=== PATIENT | male | born 1950 | race Caucasian/White ===

== ENCOUNTER 2016-11-07 10:30 | Inpatient (IN) | payer BC ==
[2016-11-07] MEDS ORDERED: MORPHINE SULFATE 10 MG/ML INJ IV ONE (10:42)
--- NOTE | 2016-11-07 10:51 | ER Document Report ---
ED General - General Chief Complaint: Headache Stated Complaint: HEADACHE/WEAKNESS Time Seen by Provider: 11/07/16 10:42 Mode of Arrival: Ambulatory Information source: Patient Notes: 65-year-old male who approximately 3 weeks ago had a seizure episode fell and struck his head and has been having intermittent headaches since presents with complaints of sweating and headaches. Patient denies any fevers or chills denies any nausea or vomiting, patient was found to have a heart rate at 156 on arrival, he denies a history of such denies any shortness of breath admits to bilateral epigastric abdominal pain TRAVEL OUTSIDE OF THE [place] IN LAST 30 DAYS: No - HPI Onset: Just prior to arrival Onset/Duration: Sudden Quality of pain: Achy Severity: Mild Pain Level: 1 Associated symptoms: Headache, Other - Epigastric abdominal pain. denies: None , Allergy/hay fever, Body/muscle aches, Chest pain, Chills, Nonproductive cough , Productive cough, Diarrhea, Drooling, Earache, Fever, Hoarseness, Hurts to breath, Leg swelling, Nausea, Vomiting, Rhinnorhea, Sinus pain/drainage, Shortness of breath, Slow to respond, Sore throat, Sweating, Weakness Exacerbated by: Denies Relieved by: Denies Similar symptoms previously: Yes Recently seen / treated by doctor: No - Related Data Allergies/Adverse Reactions: No Known Allergies Allergy (Unverified 10/31/10 11:39) Home Medications: Current Home Medications Aspirin [Adult Low Dose Aspirin EC] 81 mg PO DAILY 11/07/16 [History] Cyclosporine 0.05% Oph Emulsio [Restasis 0.05% Oph Emulsion Pf 0.4 ml] 1 drop OU BID 11/07/16 [History] Dapagliflozin Propanediol [Farxiga] 5 mg PO QAM 11/07/16 [History] Insulin Glargine,Hum.rec.anlog [[place] Solostar] 60 units SQ DAILY 11/07/16 [ History] Levetiracetam [Keppra 500 mg Tablet] 500 mg PO BID 11/07/16 [History] Liraglutide [Victoza 2-Isra] 1.8 mg SQ DAILY 11/07/16 [History] Pregabalin [Lyrica] 300 mg PO Q12 11/07/16 [History] Tramadol HCl [Tramadol HCl ER] 300 mg PO BIDP PRN 11/07/16 [History] Past Medical History - Social History Smoking Status: Never Smoker Cigarette use (# per day): No Chew tobacco use (# tins/day): No Smoking Education Provided: No Family History: Reviewed & Not Pertinent Patient has suicidal ideation: No Patient has homicidal ideation: No - Past Medical History Cardiac Medical History: Reports: Hx Hypertension - atenolol Denies: Hx Heart Attack Pulmonary Medical History: Denies: Hx Asthma Neurological Medical History: Denies: Hx Cerebrovascular Accident, Hx Seizures Renal/ Medical History: Denies: Hx Peritoneal Dialysis GI Medical History: Denies: Hx Hepatitis, Hx Hiatal Hernia, Hx Ulcer Musculoskeltal Medical History: Infectious Medical History: Denies: Hx Hepatitis Past Surgical History: Denies: Hx Open Heart Surgery, Hx Pacemaker Review of Systems - Review of Systems Notes: REVIEW OF SYSTEMS: CONSTITUTIONAL : Admits to sweats EENT: Denies eye, ear, throat, or mouth pain or symptoms. Denies nasal or sinus congestion or discharge. Denies throat, tongue, or mouth swelling or difficulty swallowing. CARDIOVASCULAR: Denies chest pain. Denies palpitations or racing or irregular heart beat. Denies ankle edema. RESPIRATORY: Denies cough, cold, or chest congestion. Denies shortness of breath, difficulty breathing, or wheezing. GASTROINTESTINAL: Admits to abdominal pain GENITOURINARY: Denies difficulty urinating, painful urination, burning, frequency, blood in urine, or discharge. MUSCULOSKELETAL: Denies back or neck pain or stiffness. Denies joint pain or swelling. SKIN: Denies rash, lesions or sores. HEMATOLOGIC : Denies easy bruising or bleeding. LYMPHATIC: Denies swollen, enlarged glands. NEUROLOGICAL: Admits to headache PSYCHIATRIC: Denies anxiety or stress. Denies depression, suicidal ideation, or homicidal ideation. ALL OTHER SYSTEMS REVIEWED AND NEGATIVE. Dictation was performed using [employer] voice recognition software PHYSICAL EXAMINATION: GENERAL: Well-appearing, well-nourished and in no acute distress. HEAD: Atraumatic, normocephalic. EYES: Pupils equal round and reactive to light, extraocular movements intact, sclera anicteric, conjunctiva are normal. ENT: Nares patent, oropharynx clear without exudates. Moist mucous membranes. NECK: Normal range of motion, supple without lymphadenopathy LUNGS: Breath sounds clear to auscultation bilaterally and equal. No wheezes rales or rhonchi. HEART: Sinus tachycardia in the 150s-160s ABDOMEN: Soft, epigastric abdominal pain left and right upper quadrant Musculoskeletal: Normal range of motion, no pitting or edema. No cyanosis. NEUROLOGICAL: Cranial nerves grossly intact. Normal speech, normal gait. Normal sensory, motor exams PSYCH: Normal mood, normal affect. SKIN: Warm, Dry, normal turgor, no rashes or lesions noted. Physical Exam - Vital signs Vitals: Temp Pulse Resp BP Pulse Ox 97.3 F 160 H 20 123/91 H 99 11/07/16 10:33 11/07/16 10:33 11/07/16 10:33 11/07/16 10:33 11/07/16 10:33 Course - Re-evaluation Re-evalutation: 11/07/16 10:53 Physical examination is concerning for a septic presentation with heart rate in the 160s with sweats, patient overall actually looks quite well labwork IV fluids pain control have been ordered 11/07/16 14:33 Patient is noted to have elevated lactic acid, heart rate did improve from 160s- 80s, he did become hypotensive, I start antibiotics prophylactically as I am unsure of exactly what is going on, patient's only pain is sharp pains intermittently behind his eye with no signs of cavernous sinus thrombosis or any life-threatening issues at this time patient will be admitted for further evaluation and care - Vital Signs Vital signs: Temp Pulse Resp BP Pulse Ox 97.3 F 160 H 19 122/82 97 11/07/16 10:33 11/07/16 10:33 11/07/16 13:14 11/07/16 13:14 11/07/16 13:14 - Laboratory Result Diagrams: 11/07/16 11:10 11/07/16 11:10 Laboratory results interpreted by me: 11/07/16 11/07/16 11/07/16 11:10 11:10 11:10 RDW 14.3 H Glucose 299 H Lactic Acid 4.0 H Discharge - Discharge Clinical Impression: Sinus tachycardia, Elevated lactic acid level Headache Qualifiers: Headache type: unspecified Headache chronicity pattern: acute headache Intractability: not intractable Qualified Code(s): R51 - Headache Condition: Stable Disposition: ADMITTED OBSERVATION Admitting Provider: Hospitalist Unit Admitted: Telemetry
[2016-11-07] MEDS: NORMAL SALINE 1000 ML 1,000 ML IV PRN ×2 (11:27→13:09)
[2016-11-07 11:29] LABS: ABSOLUTE BASOPHILS # (AUTO) 0.1 10^3/uL (0.0-0.2); ABSOLUTE EOSINOPHILS # (AUTO) 0.1 10^3/uL (0.0-0.6); ABSOLUTE LYMPHOCYTES (AUTO) 2.9 10^3/uL (0.5-4.7); ABSOLUTE MONOCYTES (AUTO) 0.5 10^3/uL (0.1-1.4); ABSOLUTE NEUT (AUTO) 6.1 10^3/uL (1.7-8.2); BASOPHILS % (AUTO) 0.5 % (0-2); EOSINOPHILS % (AUTO) 0.6 % (0-6); HEMATOCRIT 46.5 % (37.9-51.0); HEMOGLOBIN 15.6 g/dL (13.5-17.0); HGB HCT DIFFERENCE 0.3; LYMPHOCYTES % (AUTO) 29.7 % (13-45); MEAN CORPUSCULAR HEMOGLOBIN 29.9 pg (27.0-33.4); MEAN CORPUSCULAR HGB CONC 33.7 g/dL (32.0-36.0); MEAN CORPUSCULAR VOLUME 89 fl (80-97); MONOCYTES % (AUTO) 5.6 % (3-13); RED BLOOD COUNT 5.23 10^6/uL (4.35-5.55); RED CELL DISTRIBUTION WIDTH 14.3 % (11.5-14.0); SEGMENTED NEUTROPHILS % (AUTO) 63.6 % (42-78); WHITE BLOOD COUNT 9.7 10^3/uL (4.0-10.5)
--- NOTE | 2016-11-07 11:37 | RADIOLOGY REPORT (SQ) ---
EXAM DESCRIPTION: CHEST SINGLE VIEW COMPLETED DATE/TIME: 11/07/2016 11:30 am REASON FOR STUDY: tachycardia COMPARISON: 05/31/2009 EXAM PARAMETERS: NUMBER OF VIEWS: One view. TECHNIQUE: Single frontal radiographic view of the chest acquired. RADIATION DOSE: NA LIMITATIONS: None. FINDINGS: LUNGS AND PLEURA: No opacities, masses or pneumothorax. No pleural effusion. MEDIASTINUM AND HILAR STRUCTURES: No masses. Contour normal. HEART AND VASCULAR STRUCTURES: Heart stable in size. Normal vasculature. BONES: No acute findings. HARDWARE: None in the chest. OTHER: No other significant finding. IMPRESSION: NO ACUTE RADIOGRAPHIC FINDING IN THE CHEST. NO SIGNIFICANT CHANGE FROM PRIOR STUDY. TECHNICAL DOCUMENTATION: JOB ID: [id number]
[2016-11-07 11:49] LABS: ALANINE AMINOTRANSFERASE 32 U/L (21-72); ALBUMIN 4.2 g/dL (3.5-5.0); ALKALINE PHOSPHATASE 119 U/L (38-126); ANION GAP 12 (5-19); ASPARTATE AMINO TRANSFERASE 18 U/L (17-59); BILIRUBIN,DIRECT 0.3 mg/dL (0.0-0.4); BILIRUBIN,TOTAL 0.7 mg/dL (0.2-1.3); BLOOD UREA NITROGEN 18 mg/dL (7-20); CALCIUM 9.3 mg/dL (8.4-10.2); CARBON DIOXIDE 28 mmol/L (22-30); CHLORIDE 101 mmol/L (98-107); CREATINE KINASE 111 U/L (55-170); CREATININE RESULT 0.97 mg/dL (0.52-1.25); GLUCOSE 299 mg/dL (75-110); POTASSIUM 4.7 mmol/L (3.6-5.0); SODIUM 141.2 mmol/L (137-145); TOTAL PROTEIN 6.9 g/dL (6.3-8.2)
[2016-11-07 12:01] LABS: CREATINE KINASE MB 1.12 ng/mL (<4.55); TROPONIN I 0.023 ng/mL
--- NOTE | 2016-11-07 12:11 | RADIOLOGY REPORT (SQ) ---
EXAM DESCRIPTION: CT HEAD WITHOUT COMPLETED DATE/TIME: 11/07/2016 11:55 am REASON FOR STUDY: TACHYCARDIA COMPARISON: None. TECHNIQUE: Axial images acquired through the brain without intravenous contrast. Images reviewed with bone, brain and subdural windows. Images stored on PACS. All CT scanners at this facility use dose modulation, iterative reconstruction, and/or weight based dosing when appropriate to reduce radiation dose to as low as reasonably achievable (ALARA). [facility]: Dose Right [facility]: CareDose [facility]: Dose Right [facility]: Teradose 4D [facility]: [place] RADIATION DOSE: mGy. LIMITATIONS: None. FINDINGS: VENTRICLES: Prominent. CEREBRUM: No masses. No hemorrhage. No midline shift. Areas of low density in the white matter most likely due to chronic micro-vascular ischemic change. No evidence for acute infarction. CEREBELLUM: No masses. No hemorrhage. No alteration of density. No evidence for acute infarction. EXTRAAXIAL SPACES: Mild age-related involutional change. No fluid collections. No masses. ORBITS AND GLOBE: No intra- or extraconal masses. Normal contour of globe without masses. CALVARIUM: No fracture. PARANASAL SINUSES: No fluid or mucosal thickening. SOFT TISSUES: No mass or hematoma. OTHER: No other significant finding. IMPRESSION: MILD CHRONIC CHANGES OF ATROPHY AND MICROVASCULAR ISCHEMIA. NO ACUTE PROCESS. TECHNICAL DOCUMENTATION: JOB ID: [id number] Quality ID # [id number]: Final reports with documentation of one or more dose reduction techniques (e.g., Automated exposure control, adjustment of the mA and /or kV according to patient size, use of iterative reconstruction technique) 2010 [employer]- All Rights Reserved <Electronically signed by MERCY BRANDT MD in [place]> 11/07/16 1211 [facility]
[2016-11-07] MEDS ORDERED: CEFTRIAXONE 1 GM/D5W RTU 50 ML IV ONE (13:13)
[2016-11-07 14:31] LABS: APPEARANCE,URINE CLEAR; BILIRUBIN,URINE NEGATIVE (NEGATIVE); GLUCOSE, URINE >=500 mg/dL (NEGATIVE); KETONES,URINE NEGATIVE (NEGATIVE); LEUKOCYTE ESTERASE,URINE NEGATIVE (NEGATIVE); NITRITE,URINE NEGATIVE (NEGATIVE); PROTEIN,URINE NEGATIVE (NEGATIVE); URINE SPECIFIC GRAVITY 1.031; UROBILINOGEN,URINE NEGATIVE mg/dL (<2.0)
[2016-11-07] MEDS ORDERED: ACETAMINOPHEN 325 MG TABLET PO PRN (14:42)
[2016-11-07 14:48] LABS: URINE BARBITURATES SCREEN NEGATIVE; URINE METHADONE SCREEN NEGATIVE; URINE OPIATES LOW UNCONFIRMED POSITIVE; URINE PHENCYCLIDINE SCREEN NEGATIVE
[2016-11-07] MEDS ORDERED: LORAZEPAM INJ 2 MG/1 ML VIAL IV PRN (14:52)
[2016-11-07] MEDS ORDERED: DEXTROSE 50%-WATER 25 GM/50 ML DISP.SYRIN IV PRN ×2 (15:20)
[2016-11-07] MEDS ORDERED: DEXTROSE 40% GEL 15 GM TUBE PO PRN ×2 (15:20)
[2016-11-07] MEDS ORDERED: INSULIN REG, HUMAN 100 UNIT/ML 3 ML VIAL (PYX) SUBCUT PRN (15:20)
[2016-11-07] MEDS ORDERED: GLUCAGON,HUMAN RECOMB 1 MG INJ IM PRN (15:20)
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
[2016-11-07] MEDS ORDERED: BUTALB/ACETAMINOPHEN/CAFFEINE 1 TAB EACH PO PRN ×2 (15:22→15:25)
[2016-11-07] MEDS ORDERED: IBUPROFEN 600 MG TABLET PO PRN (17:23)
[2016-11-07] MEDS ORDERED: BUTALB/ACETAMINOPHEN/CAFFEINE 1 TAB EACH ONE (18:19)
[2016-11-07] MEDS: LEVETIRACETAM 500 MG TABLET PO SCH (18:30)
[2016-11-07] MEDS: CYCLOSPORINE 0.05% OPH EMULSIO 0.4 ML DROPERETTE OU SCH (18:31)
[2016-11-07] MEDS: PREGABALIN 100 MG CAPSULE PO SCH (22:29)
[2016-11-08 06:07] LABS: HEMATOCRIT 39.6 % (37.9-51.0); HGB HCT DIFFERENCE 0.9; MEAN CORPUSCULAR HGB CONC 34.2 g/dL (32.0-36.0); MEAN CORPUSCULAR VOLUME 88 fl (80-97); RED BLOOD COUNT 4.52 10^6/uL (4.35-5.55); RED CELL DISTRIBUTION WIDTH 14.2 % (11.5-14.0); WHITE BLOOD COUNT 6.1 10^3/uL (4.0-10.5)
[2016-11-08 06:15] LABS: HEMOGLOBIN 13.5 g/dL (13.5-17.0)
[2016-11-08 06:20] LABS: ANION GAP 9 (5-19); BLOOD UREA NITROGEN 15 mg/dL (7-20); CALCIUM 8.5 mg/dL (8.4-10.2); CARBON DIOXIDE 24 mmol/L (22-30); CHLORIDE 108 mmol/L (98-107); CREATININE RESULT 0.82 mg/dL (0.52-1.25); GLUCOSE 177 mg/dL (75-110); MAGNESIUM 1.8 mg/dL (1.6-2.3); SODIUM 141.4 mmol/L (137-145)
[2016-11-08] MEDS ORDERED: (PENDING PHARMACY ID) (Dapagliflozin Propanediol [Farxiga] 5 MG) PO SCH (08:00)
[2016-11-08] MEDS ORDERED: INSULIN GLARGINE,HUM.REC.ANLOG 300 UNIT/3 ML INSULN.PEN SUBCUT SCH (10:00)
[2016-11-08] MEDS ORDERED: (PENDING PHARMACY ID) (Liraglutide [Victoza 2-Pak] 1.8 MG) SQ SCH (10:00)
[2016-11-08] MEDS ORDERED: ASPIRIN 81 MG TABLET, ENT COATED PO SCH (10:00)
[2016-11-08] MEDS ORDERED: INSULIN GLARGINE,HUM.REC.ANLOG 1,000 UNIT/10 ML UNIT SUBCUT SCH (10:00)
[2016-11-08] MEDS: PREGABALIN 100 MG CAPSULE PO SCH ×2 (10:46→21:25)
[2016-11-08] MEDS: LEVETIRACETAM 500 MG TABLET PO SCH (10:46)
[2016-11-08] MEDS: HYDROCODONE/ACETAMINOPHEN 5-325 MG TABLET PO PRN ×2 (10:58→21:25)
[2016-11-08] MEDS ORDERED: LEVETIRACETAM 500 MG TABLET PO ONE (11:15)
[2016-11-08] MEDS: CYCLOSPORINE 0.05% OPH EMULSIO 0.4 ML DROPERETTE OU SCH ×2 (11:16→17:41)
--- NOTE | 2016-11-08 13:28 | PDOC CONSULTATION ---
Consultation Consult Date: 11/08/16 Attending physician:: LOAN VERDUGO Consult reason:: Tachycardia and syncope History of Present Illness Admission Date/PCP: 11/08/16 10:43 LOIS VICENTE MD Patient complains of: Generalized weakness, syncopal spells History of Present Illness: This is a 65-year-old white male with a past medical history significant for diabetes mellitus and recent injury to his head after fall who presents to the service with complaints of spell according to the patient at the beginning of this month. He was out a few weeks ago when he slipped and fell from his boat injuring his head and cutting his leg. patient presented to [facility] and was treated care for what sounds like a concussion. Since that time the patient has been complaining of headaches as well as occasional dizziness. He is following with Dr. Valencia over 58 feet. He saw her yesterday for initial evaluation and the suspicion is that he likely had a seizure when he fell off. He is due to schedule a 24 hour EEG after his been approved by his insurance. The patient's daughter is with the room and as he fell off a boat not only has he been having headaches but he is also been having spells. Difficult for her to describe the spell but she states that he will began feeling very cold, becomes sweaty, and have chills along with intense head pain. His eyes rolls back in the back of his head during these episodes and he would seem a bit spaced out to the point that they have to shake him to snap him back in reality. According to daughter the patient never remembers this last part of the spell. He has never lost any bowel or bladder incontinence. Patient said he has abdominal pain in his upper abdomen associated with the dizzy spells. In the emergency room the patient was found to initially have a heart rate of 156. He denies any chest pain or shortness of breath. Later on in his hospital stay it was determined that he had normal labs with the exception of a blood sugar of 399 and a lactic acid of 4. CT scan of his head was done which was negative. The patient dropped his blood pressure down to 70 and his heart rate fell from the 150s-80s. The patient was in sinus tachycardia or sinus normal sinus rhythm when in the emergency room. At the bedside the patient complains of epigastric pain dizziness and headache. Past Medical History Cardiac Medical History: Reports: Hypertension - atenolol Denies: Myocardial Infarction Pulmonary Medical History: Denies: Asthma Neurological Medical History: Reports: Ischemic CVA, Seizures - Patient possibly has seizures. Endocrine Medical History: Reports: Diabetes Mellitus Type 2 GI Medical History: Reports: Other - Colon cancer Denies: Hepatitis, Hiatal Hernia Musculoskeltal Medical History: Hematology: Denies: Anemia, Sickle Cell Disease Past Surgical History Past Surgical History: Reports: Other - Transverse colectomy secondary to polyps Denies: Pacemaker Social History Information Source: Relative Smoking Status: Former Smoker Number of Years Smokin Last Time Smoked: 09/05/2016 Frequency of Alcohol Use: None Hx Recreational Drug Use: No Hx Prescription Drug Abuse: No - Advance Directive Resuscitation Status: Full Code Surrogate healthcare decision maker:: Patient's is the surrogate decision-maker Family History Family History: Reviewed & Not Pertinent, DM, Hypertension Parental Family History Reviewed: Yes Children Family History Reviewed: Yes Sibling(s) Family History Reviewed.: Yes - Negative for premature coronary artery disease or sudden cardiac in the family amongst first degree relatives. Medication/Allergy Home Medications: Aspirin [Adult Low Dose Aspirin EC] 81 mg PO DAILY 11/07/16 Cyclosporine 0.05% Oph Emulsio [Restasis 0.05% Oph Emulsion Pf 0.4 ml] 1 drop OU BID 11/07/16 Dapagliflozin Propanediol [Farxiga] 5 mg PO QAM 11/07/16 Insulin Glargine,Hum.rec.anlog [Tounasra Solostar] 60 units SQ DAILY 11/07/16 Liraglutide [Victoza 2-Isra] 1.8 mg SQ DAILY 11/07/16 Pregabalin [Lyrica] 300 mg PO Q12 11/07/16 Tramadol HCl [Tramadol HCl ER] 300 mg PO BIDP PRN 11/07/16 Levetiracetam [Keppra 500 mg Tablet] 1,000 mg PO Q12 tablet 11/08/16 Allergies/Adverse Reactions: No Known Allergies Allergy (Unverified 10/31/10 11:39) Review of Systems Review of Systems: Please see history of present illness and past medical history as wall. Constitutional: No fever or chills reported. Reports frequent headaches, increasing general debility and weakness. Head : Reports recent head injury. Chronic headaches. Eyes: No recent eye pain, diplopia, redness, discharge, acute visual changes. Ears: No recent chronic ear pain, acute hearing loss, ear discharge. Oral cavity: No recent ulcerations, bleeding, oral cavity discomfort. Neck: No recent acute neck pain reported. Hematologic: No recent easy bruising or bleeding or hematologic malignancy reported. Lymphatic: No recent lymphatic malignancy, chronic lymphadenopathy reported yet Cardiovascular system review: See history of present illness. Respiratory system review: No recent chronic cough, hemoptysis, blood clots in the lungs reported. Mild Shortness of breath on exertion Gastrointestinal system review: Negative for any recent acute or chronic abdominal pain, hematemesis, melena, recent change in bowel habits. Genitourinary system review: No recent acute or chronic hematuria, flank pain, UTI etc. reported. Skin system review: Negative for any recent abnormal bruising, no rash, no pruritus reported. Neurologic: No prior history of strokes, mini strokes, positive for seizure being suspected and currently on antiseizure medications. Psychologic: No history of major psychosis or major depression reported. Musculoskeletal: Minor aches and pains reported. No acute joint swelling reported. Endocrine: No recent polyuria, polydipsia, recent heat or cold intolerance. Physical Exam Vital Signs: Temp Pulse Resp BP Pulse Ox 97.8 F 85 22 H 146/87 H 99 11/08/16 11:55 11/08/16 11:55 11/08/16 11:55 11/08/16 11:55 11/08/16 11:55 Exam: GENERAL: well-nourished and in no acute distress. Alert and oriented x3 HEAD: Atraumatic, normocephalic. EYES: Pupils equal round and reactive to light, extraocular movements intact, sclera anicteric, conjunctiva are normal. ENT: TMs normal, nares patent, oropharynx clear without exudates. Moist mucous membranes. No oral ulcerations or bleeding gums noted NECK: supple without lymphadenopathy. Trachea is central. No cervical or axillary lymphadenopathy noted. Carotids are 2+, JVD WNL LUNGS: Respiration seems nonlabored, no significant accessory muscle action noted. Breath sounds clear to auscultation bilaterally and equal noted. No wheezes rales or rhonchi noted. No significant dullness noted on percussion. CHEST: Palpation of the chest wall shows no significant chest wall tenderness. No other significant abnormalities noted. 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 ABDOMEN: Soft, no significant tenderness appreciated, normoactive bowel sounds. No guarding, no rebound. No rigidity noted . No masses appreciated. EXTREMITIES: Pedal pulses are 1-2+, no calf tenderness noted. No clubbing or cyanosis.trace to 1+ pedal edema noted NEUROLOGICAL: Focused neurological exam showed no significant neurologic deficit. Normal speech, no focal weakness appreciated. PSYCH: Normal mood, normal affect. Judgment and insight within normal limits. SKIN: No significant ecchymosis, rash, ulcerations or signs of pruritus noted. MUSCULOSKELETAL EXAM: No significant joint swelling noted. Results EKG Comments: Supraventricular tachycardia, subsequent EKG sinus rhythm. No acute ST-T wave changes noted on either EKGs Impressions: Chest X-Ray 11/07/16 10:42 IMPRESSION: NO ACUTE RADIOGRAPHIC FINDING IN THE CHEST. NO SIGNIFICANT CHANGE FROM PRIOR STUDY. Status: Image reviewed by me - Chest x-ray reviewed by me, shows normal cardiac silhouette. Lung brambila normal Assessment & Plan - Diagnosis (1) Syncope Qualifiers: Syncope type: unspecified Qualified Code(s): R55 - Syncope and collapse Is this a current diagnosis for this admission?: Yes (2) Supraventricular tachycardia Is this a current diagnosis for this admission?: Yes (3) Diabetes Qualifiers: Diabetes mellitus type: type 2 Diabetes mellitus complication status: with unspecified complications Is this a current diagnosis for this admission?: Yes (4) Spell of altered cognition Is this a current diagnosis for this admission?: Yes (5) Elevated lactic acid level Is this a current diagnosis for this admission?: Yes (6) GENERAL DEBILITY Is this a current diagnosis for this admission?: Yes - Notes Notes: Syncope: It is difficult to decide the exact etiology but could be seizure related. Cannot rule out vasovagal/neurocardiogenic syncope. Patient would benefit from prolonged monitoring as an outpatient and possible tilt table testing. Supraventricular tachycardia: Patient was noted to have this on twelve-lead EKG and rhythm strips showed sudden change to sinus rhythm which suggest that this was a supraventricular tachycardia. Will start patient on low-dose beta- adeel. Diabetes: Continue current management plans. Avoid severe hypoglycemia or hyperglycemia. Spells of altered consciousness: Possibly seizure related. General debility: Patient general strength and health has been going downhill. Exact etiology not clear but agree with physical therapy assessment. Patient will also benefit from neurological assessment. Elevated lactic acid level noted on admission. This has come down. Most likely related to seizure disorder. However will order a 2D echo to evaluate LV EF etc. - Time Time Spent: 50 to 70 Minutes - CODE STATUS was discussed, patient remains full code. Surrogate decision-maker patient spouse. Multiple medical problems were addressed. Management plans discussed with involved personnels. Medical decision making was of moderate to high complexity, patient's has multiple comorbidities. Medications reviewed and adjusted accordingly: Yes
--- NOTE | 2016-11-08 13:47 | EKG REPORT ---
SEVERITY:- ABNORMAL ECG - SINUS TACHYCARDIA PROBABLE POSTERIOR INFARCT : Confirmed by: Bess Bonner MD 08-Nov-2016 13:46:12
[2016-11-08 14:20] LABS: LIPASE 34.2 U/L (23-300)
--- NOTE | 2016-11-08 14:25 | PDOC PROGRESS REPORT ---
Subjective Progress Note for:: 11/08/16 Subjective:: The patient was seen this morning at the bedside along with his and 6 other family members. It was a long discussion about the patient spells and concerns for him having underlying neurologic condition. According to the family the patient had 3 more episodes yesterday overnight. I spoke with the day nurse who stated that she did not get any report patient had any seizures. Apparently the the episodes were reported to the night nurses but by the time he got in the room everything was over and they never actually witnessed any episodes. The family describes the patient holding the intrapleural aspect of his head complaining of pain and then his eyes rolling backwards. Of the 3 episodes 30 seconds with the longest. Family has great concerns that the patient is sick and that nothing is being found out about his underlying illness. They consider leaving AMA last night however the patient did not elect to do so despite other family members encouraging him. They have requested transfer to another facility for a neurologic evaluation. Recall that the patient has seen a neurologist in [place] when he was hospitalized for these episodes they are and he is also seen a neurologist in [facility] on Wednesday prior to presentation here. His workup that these outpatient facilities have been negative and remained negative here. We have agreed that I will call [facility] to see if they are willing to accept him in transfer, but I have already clarified that this will likely not happen since their hospital has been full for quite some time and this is a nonemergent situation. The plan of care today will be to admit the patient to inpatient status, obtain physical therapy consult (the patient's family feels as though he is weaker), increase Keppra to 1000 mg twice a day, and collated for transfer. I her back provided at 1140, shortly after I called them. I spoke with Dr. Rajan. I discussed the case with him he is a neurologist advised that he recommended an ambulatory EEG. He stated that we could call the office tomorrow and see if we can get him in this week. That number is [phone]. He suggested that if the family wanted they can contact the epilepsy center and have an outpatient study done at [facility] within the next 2 weeks. Physical Exam Vital Signs: Temp Pulse Resp BP Pulse Ox 97.8 F 85 22 H 146/87 H 99 11/08/16 11:55 11/08/16 11:55 11/08/16 11:55 11/08/16 11:55 11/08/16 11:55 GENERAL: This is a well-developed well-nourished morbidly obese white male resting in bed currently in no acute distress HEART: Regular rate and rhythm. No murmurs, rubs or gallops. LUNGS: Clear to auscultation bilaterally with equal rise and fall of the chest. ABDOMEN: Soft, nontender, nondistended with normoactive bowel sounds EXTREMETIES: No clubbing, cyanosis or edema. 2+ peripheral pulses bilaterally. NEURO: Awake, alert and oriented 3. Cranial nerves II through XII are grossly intact. Results Impressions: Chest X-Ray 11/07/16 10:42 IMPRESSION: NO ACUTE RADIOGRAPHIC FINDING IN THE CHEST. NO SIGNIFICANT CHANGE FROM PRIOR STUDY. Assessment & Plan - Diagnosis (1) Elevated lactic acid level Plan: . It came back negative on repeat. Lactic acid was likely a spurious lab. (2) Headache Qualifiers: Headache type: unspecified Headache chronicity pattern: acute headache Intractability: not intractable Qualified Code(s): R51 - Headache Plan: Tylenol will be ordered. We will also some Fioricet. Supportive care. (3) Sinus tachycardia Plan: We will consult with Dr. Reese for his opinion on the patient's tachycardia from yesterday. In my discussion with the neurologist tilt table was also suggested. I will mention this to Dr. Reese. Orthostatics had already been done twice and each time were negative. (4) Spell of altered cognition Is this a current diagnosis for this admission?: YesPlan: My concern for the spells that they may be related to underlying seizure versus transient arrhythmia. Increase Keppra to 1000 mg p.o. twice daily. Call on Wednesday to see if outpatient 24 hour EEG will be possible in [place]. Continue with plans for PT will. (5) Obesity (BMI 30.0-34.9) Plan: Weight loss through dietary changes and exercise. (6) Diabetes Qualifiers: Diabetes mellitus type: type 2 Diabetes mellitus complication status: with unspecified complications Is this a current diagnosis for this admission?: YesPlan: Records from [facility] show that his hemoglobin A1c is 9.3 sliding scale insulin. Resume home medications. - Time Time Spent with patient: Time spent: 60 minutes [id number] time 30 minutes. Rest of the time was spent in coordination of care to include 2 conversations was divided and the consulting neurologist by phone, discussion with nursing staff, discussion with cardiology service. - Inpatient Certification Medical Necessity: Need Close Monitoring Due to Risk of Patient Decompensation, Need For Continuous Telemetry Monitoring
--- NOTE | 2016-11-08 17:17 | PDOC DISCHARGE SUMMARY ---
General - Admit/Disc Date/PCP Admission Date/Primary Care Provider: 11/08/16 10:43 LOIS VICENTE MD Discharge Date: 11/08/16 - Discharge Diagnosis (1) Spell of altered cognition Is this a current diagnosis for this admission?: YesSummary: Transferred to [facility] for further evaluation. Keppra was increased to 1000 twice a day and this will be continued for now. Ultram was discontinued from the patient's medicine list. (2) Elevated lactic acid level Summary: Likely spurious lab. This is normal on repeat. (3) Headache Summary: Headache continues at a base level. Continue as needed Fioricet and as needed hydrocodone. (4) Sinus tachycardia Summary: Resolved. The patient was evaluated by cardiology who felt that this was either sinus tach or possibly SVT. Addition of a beta-adeel at low dose was recommended. (5) Obesity (BMI 30.0-34.9) Summary: Weight loss through dietary changes and exercise. (6) Diabetes Is this a current diagnosis for this admission?: YesSummary: Uncontrolled diabetes mellitus. Hemoglobin A1c was 9.3 from the outside hospital in [place]. Continue current medications follow-up as an outpatient for further management. - Additional Information Resuscitation Status: Full Code Home Medications: Aspirin [Adult Low Dose Aspirin EC] 81 mg PO DAILY 11/07/16 Cyclosporine 0.05% Oph Emulsio [Restasis 0.05% Oph Emulsion Pf 0.4 ml] 1 drop OU BID 11/07/16 Dapagliflozin Propanediol [Farxiga] 5 mg PO QAM 11/07/16 Insulin Glargine,Hum.rec.anlog [Vic Shah] 60 units SQ DAILY 11/07/16 Liraglutide [Victoza 2-Isra] 1.8 mg SQ DAILY 11/07/16 Pregabalin [Lyrica] 300 mg PO Q12 11/07/16 Tramadol HCl [Tramadol HCl ER] 300 mg PO BIDP PRN 11/07/16 Levetiracetam [Keppra 500 mg Tablet] 1,000 mg PO Q12 tablet 11/08/16 History of Present Illness History of Present Illness: This is a 65-year-old white male with a past medical history significant for diabetes mellitus and recent injury to his head after fall who presents to the service with complaints of spell according to the patient at the beginning of this month he was out chest pain today when he slipped and fell from his boat injuring his head and cutting his leg. patient presented to [facility] and was treated care for what sounds like a concussion. Since that time the patient has been complaining of headaches as well as occasional dizziness. He is following with Dr. Valencia over 58 feet. He saw her yesterday for initial evaluation and the suspicion is that he likely had a seizure when he fell off. He is due to schedule a 24 hour EEG after his been approved by his insurance. The patient's daughter is with the room and as he fell off a boat not only has he been having headaches but he is also been having spells. Difficult for her to describe the spell but she states that he will began feeling very cold, becomes sweaty, and have chills along with intense head pain. His eyes within low back in the back of his head during these episodes and he would seem a bit spaced out to the point that they have to shake him to snap him back in reality. According to daughter the patient never remembers this last part of the spell. He has never lost any bowel or bladder incontinence. Patient said he has abdominal pain in his upper abdomen associated with the dizzy spells. In the emergency room the patient was found to initially have a heart rate of 156. He denies any chest pain or shortness of breath. Later on in his hospital stay it was determined that he had normal labs with the exception of a blood sugar of 399 and a lactic acid of 4. CT scan of his head was done which was negative. The patient dropped his blood pressure down to 70 and his heart rate fell from the 150s-80s. The patient was in sinus tachycardia or sinus normal sinus rhythm when in the emergency room. At the bedside the patient complains of epigastric pain dizziness and headache. Hospital Course Hospital Course: Patient was initially admitted to the observation unit. He was maintained on telemetry and had no further episodes of tachycardia while here. Overnight he had 3 more spells that were unwitnessed by the nursing staff. According to family they lasted approximately 10-30 seconds. The symptoms were the same. The patient had a headache that became severe. He held his head, his eyes rolled back in his head and he lost consciousness for a few seconds. He was arousable with in a few moments afterwards. He did not have any bladder or bowel incontinence or any biting of the tongue. No shaking was reported from the family members that witnessed it. The patient does not recall any of these episodes. When I met with the family this morning we agreed that I would increase his Keppra, admit him to the hospital, consult physical therapy for his generalized weakness and try to get him transferred to a center with a neurologist. I initially contacted [facility]. Unfortunately, their hospital is full and they are not able to accept any patient that is not of [facility] patient unless it to the emergency. I did however get to speak with the neurologist they are Dr. Urena. In addition to the increase in Keppra he recommended a tilt table test be added on with the editor at large. He also recommended that I contacted [facility] for possibility of transferral daycare if the family was willing. If not he seemed to be confident that he could get them in this week for a 24 hour EEG at the ambulatory center in [place]. He recommended the [facility] epilepsy center for ambulatory EEG as well (if the family did not want to come to [place]). I contacted the [facility] and spoke with Dr. Milton. She is graciously accepted the patient in transfer to their EEG unit. These plans were communicated with the patient and his son who is at the bedside. A.m. cortisol and pro calcitonin pending at discharge. Physical Exam Vital Signs: Temp Pulse Resp BP Pulse Ox 97.8 F 85 22 H 146/87 H 99 11/08/16 11:55 11/08/16 11:55 11/08/16 11:55 11/08/16 11:55 11/08/16 11:55 See today's progress note for physical exam findings. Results Impressions: Chest X-Ray 11/07/16 10:42 IMPRESSION: NO ACUTE RADIOGRAPHIC FINDING IN THE CHEST. NO SIGNIFICANT CHANGE FROM PRIOR STUDY. Qualifiers PATEINT BEING DISCHARGED WITH ANY OF THE FOLLOWING DIAGNOSIS?: No Plan Time Spent: Greater than 30 Minutes
[2016-11-08] MEDS ORDERED: LEVETIRACETAM 500 MG TABLET PO SCH (22:00)
[2016-11-09 00:12] VITALS: BP 109/63
[2016-11-10 14:59] LABS: WEST NILE VIRUS IGG Negative (Negative); WEST NILE VIRUS IGM Negative (Negative)
== END 2016-11-09 00:50 | disposition short-term general hospital (02) | DRG 57 ==
LOC: ER 10:30 → EH 13:20 → UNDOADMOB 13:20 → EH 14:42 → 4N 15:44 → OBSVTOIN 11-08 10:43
PROVIDERS: ADMIT Internal Medicine; ATTEND Internal Medicine
DX: G31.84 Mild cognitive impairment of uncertain or unknown etiology (principal); I47.1 Supraventricular tachycardia; R74.0 Nonspecific elevation of levels of transaminase and lactic acid dehydrogenase [LDH]; E66.01 Morbid (severe) obesity due to excess calories; Z68.30 Body mass index [BMI] 30.0-30.9, adult; E11.9 Type 2 diabetes mellitus without complications; I10 Essential (primary) hypertension; Z85.038 Personal history of other malignant neoplasm of large intestine; Z86.73 Personal history of transient ischemic attack (TIA), and cerebral infarction without residual deficits; Z90.49 Acquired absence of other specified parts of digestive tract; Z86.010 Personal history of colon polyps; Z87.891 Personal history of nicotine dependence; Z79.82 Long term (current) use of aspirin; Z79.4 Long term (current) use of insulin; Z79.899 Other long term (current) drug therapy; Z83.3 Family history of diabetes mellitus; Z82.49 Family history of ischemic heart disease and other diseases of the circulatory system
CPT/HCPCS: 36415; 70450; 71010; 80048; 80053; 80307; 81001; 82550; 82553; 82607; 82962; 83605; 83690; 83735; 84443; 84484; 85025; 85027; 86788; 86789; 87040; 93005; 93010; 96365; 96375; 99285; J0696; J1815; J2270; J3490; J7030

== ENCOUNTER 2016-12-31 22:40 | Emergency (ER) | payer BC ==
[2017-01-01] MEDS ORDERED: NORMAL SALINE 1000 ML 1,000 ML IV ONE (00:18)
[2017-01-01] MEDS ORDERED: ONDANSETRON HCL INJ/PF 4 MG/2 ML SDV IV ONE (00:19)
[2017-01-01 00:51] LABS: VENOUS BLOOD BASE EXCESS -1.8 mmol/L; VENOUS BLOOD HCO3 23.5 mmol/L (20-32); VENOUS BLOOD PCO2 41.8 mmHg (35-63); VENOUS BLOOD PH 7.37 (7.30-7.42)
[2017-01-01 00:55] LABS: HEMATOCRIT 46.7 % (37.9-51.0); HEMOGLOBIN 16.2 g/dL (13.5-17.0); HGB HCT DIFFERENCE 1.9; MEAN CORPUSCULAR HEMOGLOBIN 30.6 pg (27.0-33.4); MEAN CORPUSCULAR HGB CONC 34.7 g/dL (32.0-36.0); MEAN CORPUSCULAR VOLUME 88 fl (80-97); RED BLOOD COUNT 5.29 10^6/uL (4.35-5.55); RED CELL DISTRIBUTION WIDTH 13.6 % (11.5-14.0); WHITE BLOOD COUNT 8.9 10^3/uL (4.0-10.5)
[2017-01-01 01:03] LABS: ALANINE AMINOTRANSFERASE 44 U/L (21-72); ALBUMIN 4.2 g/dL (3.5-5.0); ALKALINE PHOSPHATASE 91 U/L (38-126); ANION GAP 19 (5-19); ASPARTATE AMINO TRANSFERASE 25 U/L (17-59); BILIRUBIN,DIRECT 0.3 mg/dL (0.0-0.4); BILIRUBIN,TOTAL 0.7 mg/dL (0.2-1.3); BLOOD UREA NITROGEN 21 mg/dL (7-20); CALCIUM 9.9 mg/dL (8.4-10.2); CARBON DIOXIDE 23 mmol/L (22-30); CHLORIDE 102 mmol/L (98-107); CREATININE RESULT 0.96 mg/dL (0.52-1.25); GLUCOSE 246 mg/dL (75-110); POTASSIUM 4.5 mmol/L (3.6-5.0); SODIUM 143.5 mmol/L (137-145); TOTAL PROTEIN 6.8 g/dL (6.3-8.2)
[2017-01-01] MEDS ORDERED: LIDOCAINE 5% (700 MG) TRANSDERMAL ADH..PATCH TP ONE (01:04)
[2017-01-01] MEDS ORDERED: KETOROLAC TROMETHAMINE INJ/PF 30 MG/1 ML SDV IV ONE (01:06)
--- NOTE | 2017-01-01 01:17 | ER Document Report ---
ED General - General Chief Complaint: Abdominal Pain Stated Complaint: VOMITING Time Seen by Provider: 01/01/17 00:17 Notes: Patient is a 66-year-old male with a past medical history postconcussive syndrome, sinus tachycardia, obesity, insulin-dependent diabetes who presents with nausea, vomiting and epigastric abdominal pain that is been ongoing for the past 8 hours. Patient states the proximal 1 hour after receiving a dose of naproxen while at [facility] he began to develop mild epigastric abdominal pain. He then had approximately 8 episodes of nonbilious, nonbloody vomitus. He states that he received Zofran by EMS and this has resolved his vomiting. He notes that he has a history of similar symptoms in the past. He did not notice anything to worsen his symptoms. At time of my assessment he denies any abdominal pain. He does also complain of 48 hours of right proximal posterior leg pain. This is worsened by walking. He denies any pain when he is lying still. He has no history of pain to this area in the past. He denies any back pain. No bowel or bladder incontinence. No weakness or numbness. He denies any chest pain. He has not seen his primary care doctor regarding today' s concerns. TRAVEL OUTSIDE OF THE [place] IN LAST 30 DAYS: No - Related Data Allergies/Adverse Reactions: No Known Allergies Allergy (Unverified 10/31/10 11:39) Past Medical History - General Information source: Patient - Social History Smoking Status: Never Smoker Frequency of alcohol use: None Drug Abuse: None Lives with: Spouse/Significant other Family History: Reviewed & Not Pertinent, Hypertension Patient has suicidal ideation: No Patient has homicidal ideation: No - Past Medical History Cardiac Medical History: Reports: Hx Hypertension - atenolol Denies: Hx Heart Attack Pulmonary Medical History: Denies: Hx Asthma Neurological Medical History: Reports: Hx Seizures - Patient possibly has seizures.. Denies: Hx Cerebrovascular Accident Endocrine Medical History: Reports: Hx Diabetes Mellitus Type 2 Renal/ Medical History: Denies: Hx Peritoneal Dialysis GI Medical History: Denies: Hx Hepatitis, Hx Hiatal Hernia, Hx Ulcer Musculoskeltal Medical History: Infectious Medical History: Denies: Hx Hepatitis Past Surgical History: Reports: Other - Transverse colectomy secondary to polyps. Denies: Hx Open Heart Surgery, Hx Pacemaker Review of Systems - Review of Systems Notes: Constitutional: Negative for fever. HENT: Negative for sore throat. Eyes: Negative for visual changes. Cardiovascular: Negative for chest pain. Respiratory: Negative for shortness of breath. Gastrointestinal: Negative for abdominal pain, vomiting or diarrhea. Genitourinary: Negative for dysuria. Musculoskeletal: Negative for back pain. Skin: Negative for rash. Neurological: Negative for headaches, weakness or numbness. 10 point ROS negative except as marked above and in HPI. Physical Exam - Vital signs Vitals: Temp Pulse Resp BP Pulse Ox 98.3 F 113 H 18 152/98 H 99 12/31/16 22:51 12/31/16 22:51 12/31/16 22:51 12/31/16 22:51 12/31/16 22:51 Interpretation: Tachycardic Notes: PHYSICAL EXAMINATION: GENERAL: Appears mildly uncomfortable but in no acute distress HEAD: Atraumatic, normocephalic. EYES: Pupils equal round and reactive to light, extraocular movements intact, sclera anicteric, conjunctiva are normal. ENT: nares patent, oropharynx clear without exudates. Moderately dry mucous membranes. NECK: Normal range of motion, supple without lymphadenopathy LUNGS: Breath sounds clear to auscultation bilaterally and equal. No wheezes rales or rhonchi. HEART: Regular rate and rhythm without murmurs ABDOMEN: Soft, nontender, normoactive bowel sounds. No guarding, no rebound. No masses appreciated. EXTREMITIES: Normal range of motion, no pitting or edema. No cyanosis. No pain with axial loading, internal and external rotation of the right hip. There is mild pain on palpation of the right hamstring region. No swelling or erythema to the area NEUROLOGICAL: No focal neurological deficits. Moves all extremities spontaneously and on command. PSYCH: Normal mood, normal affect. SKIN: Warm, Dry, normal turgor, no rashes or lesions noted. Course - Re-evaluation Re-evalutation: 01/01/17 01:05 Patient presents with multiple complaints that appear unrelated. First patient was complaining of abdominal pain in the epigastrium associated vomiting. His vomiting has since resolved and he now denies any abdominal pain. He has no focal abdominal tenderness on examination. He has a history of partial colectomy in the past with no other additional abdominal surgeries in the past. He has no right upper quadrant tenderness to suggest an acute cholecystitis. Laboratories do not show any evidence of acute hepatitis or pancreatitis. He has tolerated oral intake here in the emergency room without any difficulty. Patient does also complain of some right leg pain to the quadriceps and hamstring region. He does not have any hip pain with axial loading or internal/ external rotation of the right hip. This does appear to be musculoskeletal in origin I do not suspect an acute DVT or peripheral vascular disease. Will obtain basic laboratories, 2 view of the abdomen, provide IV fluids, analgesia and reassess 01/01/17 02:39 Patient feels much improved, is ate and drank here in the emergency department with no additional symptoms. He denies any abdominal pain. Bedside right upper quadrant abdominal exam does not demonstrate any evidence of acute cholecystitis. No pericholecystic fluid or gallbladder wall thickening. Several small stones. No tenderness to palpation of the right upper quadrant. Remainder of repeat abdominal exam is benign. Two-view of the abdomen is normal without any evidence of obstruction or free air. All labs including a troponin are unremarkable. His vital signs have normalized and he is no longer tachycardic. At this time will discharge with return precautions and follow-up recommendations. Verbal discharge instructions given a the bedside and opportunity for questions given. Medication warnings reviewed. Patient is in agreement with this plan and has verbalized understanding of return precautions and the need for primary care follow-up in the next 24-72 hours. - Vital Signs Vital signs: Temp Pulse Resp BP Pulse Ox 98.3 F 113 H 18 152/98 H 99 12/31/16 22:51 12/31/16 22:51 12/31/16 22:51 12/31/16 22:51 12/31/16 22:51 - Laboratory Result Diagrams: 01/01/17 00:36 01/01/17 00:36 Laboratory results interpreted by me: 01/01/17 00:36 BUN 21 H Glucose 246 H - Diagnostic Test Radiology reviewed: Image reviewed, Reports reviewed Radiology results interpreted by me: 01/01/17 02:49 2 view of the abdomen: No evidence of obstruction or perforation Discharge - Discharge Clinical Impression: Epigastric abdominal pain, Right leg pain Vomiting Qualifiers: Vomiting type: unspecified Vomiting Intractability: non-intractable Nausea presence: with nausea Qualified Code(s): R11.2 - Nausea with vomiting, unspecified Condition: Good Disposition: HOME, SELF-CARE Additional Instructions: You have been seen in the Emergency Department (ED) for abdominal pain. Your evaluation did not identify a clear cause of your symptoms but was generally reassuring. Please follow up with your doctor as soon as possible regarding today's emergent visit and the symptoms that are bothering you. Return to the ED if your abdominal pain worsens or fails to improve, you develop bloody vomiting, bloody diarrhea, you are unable to tolerate fluids due to vomiting, fever greater than 101, or other symptoms that concern you. Referrals: KATIE AIKEN MD [Primary Care Provider] - Follow up as needed
--- NOTE | 2017-01-01 02:05 | RADIOLOGY REPORT (SQ) ---
EXAM DESCRIPTION: ABDOMEN 2 VIEWS COMPLETED DATE/TIME: 01/01/2017 1:15 am REASON FOR STUDY: vomiting, ab pain COMPARISON: None. NUMBER OF VIEWS: Two views. TECHNIQUE: Supine and erect/decubitus radiographic images of the abdomen acquired. LIMITATIONS: None. FINDINGS: FREE AIR: None. No abnormal gas collections. LUNG BASES: Clear. BOWEL GAS PATTERN: Nonobstructive pattern. No dilated loops or air fluid levels. Paucity of bowel ga s. CALCIFICATIONS: No suspicious calcifications. SOFT TISSUES: No gross mass or suggestion of organomegaly. HARDWARE: None in the abdomen. BONES: Kror-rz-bdljrzrn levo convexity of the lumbar spine. OTHER: No other significant finding. IMPRESSION: No acute findings. TECHNICAL DOCUMENTATION: JOB ID: [id number] [employer]- All Rights Reserved
[2017-01-01 03:30] VITALS: BP 137/84
== END 2017-01-01 00:25 | disposition home or self-care (01) ==
LOC: ER 22:40
DX: R10.13 Epigastric pain (principal); R11.2 Nausea with vomiting, unspecified; M79.604 Pain in right leg; I10 Essential (primary) hypertension; E11.9 Type 2 diabetes mellitus without complications
CPT/HCPCS: 99284; 96361; 96374; 36415; 82962; 85027; 80053; 84484; 82803; 74020; J1885; J7030

== ENCOUNTER 2017-07-20 07:38 | Day surgery (SDC) | payer BC ==
[~2017-07-20 07:38] MED LIST: BUPIVACAINE HCL 0.75% INJ/PF (7.5 MG/1 ML) 10 ML SDV OD PRN; CHONDR SU A NA/HYALUR INTRAOC KIT (SURGICARE) ONE; EPINEPHRINE INJ/PF 1 MG/1 ML AMPULE ONE; KETOROLAC TROMETHAMINE 0.45% 4 DROP/0.4 ML DROPERETTE OD PRN; LIDOCAINE 1% INJ-PF (10 MG/ML) 30 ML SDV ONE; LIDOCAINE 4% INJ/PF (40 MG/ML) 5 ML AMPUL OD PRN
[2017-07-20] MEDS: TROPICAMIDE 1% OPH SOLN 3 ML OD PRN ×3 (08:12→08:34)
[2017-07-20] MEDS: CYCLOPENTOLATE 0.2%/PHENYLEPHRINE 1% OPH SOLN 2 ML OD PRN ×3 (08:12→08:34)
[2017-07-20] MEDS: BESIFLOXACIN HCL 0.6% OPH SUSP 5 ML BOTTLE OD PRN ×3 (08:13→09:13)
[2017-07-20] MEDS: TETRACAINE HCL 0.5% OPH SOLN 0.6 ML DROPERETTE OD PRN ×2 (08:14→08:36)
[2017-07-20] MEDS ORDERED: MIDAZOLAM 2 MG/2 ML INJ ONE (08:31)
--- NOTE | 2017-07-20 10:43 | [facility] DISCHARGE SUMMARY E ---
[facility] Discharge Summary NAME: JERAMY CONDON AGE: 66Y ADMITTED: 07/20/2017 DISCHARGED: 07/20/2017 PREOPERATIVE DIAGNOSIS: Cataract, right eye. POSTOPERATIVE DIAGNOSIS: Cataract, right eye. HOSPITAL COURSE: The patient is a 66-year-old who underwent uneventful cataract extraction with intraocular lens implant, right eye, on 07/20/2017. He will be discharged to home. He was instructed to resume preoperative medications, take Tylenol as needed for discomfort, to keep his eye shielded, to use Besivance, Durezol, and Ilevro at 3 p.m. and 8 p.m., and to followup in my office in 1 day. DICTATING PHYSICIAN: JARRETT YOON M.D. [id number] PHY#: [id number] ID: [id number] JOB#: [id number] ACCT: [id number] cc:JARRETT YOON M.D. >
--- NOTE | 2017-07-20 10:43 | [facility] OPERATIVE REPORT E ---
[facility] Operative Report NAME: JERAMY CONDON AGE: 66Y DATE OF SURGERY: 07/20/2017 ROOM: PREOPERATIVE DIAGNOSIS: Cataract, right eye. POSTOPERATIVE DIAGNOSIS: Cataract, right eye. PROCEDURE PERFORMED: Phacoemulsification with posterior chamber intraocular lens, right eye. SURGEON: Lucía Yoon MD ANESTHESIA: Topical with MAC. INDICATIONS FOR SURGERY: Difficulty reading road signs and driving at night. Best corrected visual acuity 20/60. PROCEDURE: The patient was brought to the operating room and placed on the operative table. Following tetracaine drops, topical anesthesia was administered. This consisted of instrument wipe pledgets soaked in a solution of 4% Xylocaine mixed with 0.75% Marcaine in a 1:2 ratio. A 2 x 1 cm pledget was placed in the superior fornix. A 1 x 1 cm pledget was placed in the inferior fornix. The eye was patched shut for 5 minutes. The patch was removed. The eye was sterilely prepped and draped in the usual manner. Lid speculum was placed in the eye. The pledgets were removed. 4-0 black silk sutures were placed around the superior and the inferior rectus muscles to be used as traction. A conjunctival peritomy was made at the 10 o'clock position. Hemostasis was obtained with bipolar cautery. A posterior limbal groove was created using a crescent knife and dissected anteriorly towards the cornea. A sharp point blade was used to create a paracentesis site at the 2 o'clock position. A 2.4 mm keratome was used to enter the anterior chamber through the groove. Viscoelastic was injected into the anterior chamber. An anterior capsulotomy was performed using Utrata forceps in a capsulorrhexis fashion. Hydrodissection and hydrodelineation were performed. Phacoemulsification was performed in [id number]-hkr-mwinvch technique. A total of 7.36 CDE phaco time was used. Following this, the I/A unit was used to remove residual cortex. Viscoelastic was injected into the capsular bag. Intraocular lens model [id number], 18.0 diopters, serial number [id number] was placed in the capsular bag. The I/A unit was used to remove residual viscoelastic. The wound was seen to be watertight under high and low pressure, and no sutures were placed. The intraocular lens was well centered. The pressure was adjusted in the eye to normal pressure. The 4-0 black silk sutures and lid speculum were removed. The eye was shielded after Besivance drops were placed. The patient tolerated the procedure well and was sent to the recovery room in good condition. DICTATING PHYSICIAN: LUCÍA YOON M.D. [id number] PHY#: [id number] ID: [id number] JOB#: [id number] ACCT: [id number] cc:LUCÍA YOON M.D. >
== END 2017-07-20 10:00 | disposition home or self-care (01) ==
LOC: SC 07:38
PROVIDERS: ATTEND Ophthalmology
PROC: 08RJ3JZ Replacement of Right Lens with Synthetic Substitute, Percutaneous Approach (ICD-10-PCS; principal; 2017-07-20 09:00)
DX: H25.813 Combined forms of age-related cataract, bilateral (principal); H57.03 Miosis; E11.3292 Type 2 diabetes mellitus with mild nonproliferative diabetic retinopathy without macular edema, left eye; H01.002 Unspecified blepharitis right lower eyelid; H01.005 Unspecified blepharitis left lower eyelid; H04.123 Dry eye syndrome of bilateral lacrimal glands; G40.909 Epilepsy, unspecified, not intractable, without status epilepticus; Z87.891 Personal history of nicotine dependence; Z79.899 Other long term (current) drug therapy; Z86.73 Personal history of transient ischemic attack (TIA), and cerebral infarction without residual deficits; Z79.4 Long term (current) use of insulin
CPT/HCPCS: 66984; 82962; V2632; J2250; J3490 ×4; J0171; 142

== ENCOUNTER 2017-08-24 10:11 | Day surgery (SDC) | payer BC ==
[~2017-08-24 10:11] MED LIST changes: -BUPIVACAINE HCL 0.75% INJ/PF (7.5 MG/1 ML) 10 ML SDV OD PRN; +BUPIVACAINE HCL 0.75% INJ/PF (7.5 MG/1 ML) 10 ML SDV OS PRN; -CHONDR SU A NA/HYALUR INTRAOC KIT (SURGICARE) ONE; -EPINEPHRINE INJ/PF 1 MG/1 ML AMPULE ONE; -KETOROLAC TROMETHAMINE 0.45% 4 DROP/0.4 ML DROPERETTE OD PRN; +KETOROLAC TROMETHAMINE 0.45% 4 DROP/0.4 ML DROPERETTE OS PRN; -LIDOCAINE 1% INJ-PF (10 MG/ML) 30 ML SDV ONE; -LIDOCAINE 4% INJ/PF (40 MG/ML) 5 ML AMPUL OD PRN; +LIDOCAINE 4% INJ/PF (40 MG/ML) 5 ML AMPUL OS PRN
[2017-08-24] MEDS ORDERED: EPINEPHRINE INJ/PF 1 MG/1 ML AMPULE ONE (10:38)
[2017-08-24] MEDS ORDERED: LIDOCAINE 1% INJ-PF (10 MG/ML) 30 ML SDV ONE (10:38)
[2017-08-24] MEDS ORDERED: CHONDR SU A NA/HYALUR INTRAOC KIT (SURGICARE) ONE (10:38)
[2017-08-24] MEDS: TETRACAINE HCL 0.5% OPH SOLN 0.6 ML DROPERETTE OS PRN ×2 (10:58→11:25)
[2017-08-24] MEDS: CYCLOPENTOLATE 0.2%/PHENYLEPHRINE 1% OPH SOLN 2 ML OS PRN ×3 (10:59→11:23)
[2017-08-24] MEDS: TROPICAMIDE 1% OPH SOLN 3 ML OS PRN ×3 (10:59→11:23)
[2017-08-24] MEDS: BESIFLOXACIN HCL 0.6% OPH SUSP 5 ML BOTTLE OS PRN ×3 (11:00→12:07)
[2017-08-24] MEDS ORDERED: MIDAZOLAM 2 MG/2 ML INJ ONE (11:21)
[2017-08-24] MEDS ORDERED: LIDOCAINE 1%/PHENYLEPHRINE 1.5% 1 ML VIAL ONE (11:23)
--- NOTE | 2017-08-24 13:24 | [facility] DISCHARGE SUMMARY E ---
[facility] Discharge Summary NAME: JERAMY CONDON AGE: 66Y ADMITTED: 08/24/2017 DISCHARGED: 08/24/2017 FINAL DIAGNOSIS: Cataract, left eye. HOSPITAL COURSE: The patient is a 66-year-old gentleman who underwent uneventful cataract extraction with intraocular lens implant, left eye, on 08/24/2017. He will be discharged to home. He was instructed to resume preoperative medications; to take Tylenol as needed for discomfort; to keep his eye shielded; to use Besivance, Durezol, and Ilevro at 3 p.m. and 8 p.m.; and to follow up in my office in 1 day. DICTATING PHYSICIAN: JARRETT YOON M.D. [id number] PHY#: [id number] ID: [id number] JOB#: [id number] ACCT: [id number] cc:JARRETT YOON M.D. >
--- NOTE | 2017-08-24 13:24 | [facility] OPERATIVE REPORT E ---
[facility] Operative Report NAME: JERAMY CONDON AGE: 66Y DATE OF SURGERY: 08/24/2017 ROOM: PREOPERATIVE DIAGNOSIS: Cataract, left eye. POSTOPERATIVE DIAGNOSIS: Cataract, left eye. PROCEDURE PERFORMED: Phacoemulsification with posterior chamber intraocular lens, left eye. SURGEON: JARRETT YOON M.D. ANESTHESIA: Topical with MAC. INDICATIONS FOR SURGERY: Difficulty with night driving. Best corrected visual acuity 20/40. PROCEDURE: The patient was brought to the operating room and placed on the operative table. Following tetracaine drops, topical anesthesia was administered. This consisted of instrument wipe pledgets soaked in a solution of 4% Xylocaine mixed with 0.75% Marcaine in a 1:2 ratio. A 2 x 1 cm pledget was placed in the superior fornix. A 1 x 1 cm pledget was placed in the inferior fornix. The eye was patched shut for 5 minutes. The patch was removed. The eye was sterilely prepped and draped in the usual manner. Lid speculum was placed in the eye. The pledgets were removed and 4-0 black silk sutures were placed around the superior and the inferior rectus muscles to be used as traction. A conjunctival peritomy was made at the 10 o'clock position. Hemostasis was obtained with bipolar cautery. The 0.3 mL of phenylephrine 1.5% and lidocaine 1% nonpreserved were injected in the eye following the incision. A posterior limbal groove was created using a crescent knife and dissected anteriorly towards the cornea. A sharp point blade was used to create a paracentesis site at the 2 o'clock position. A 2.4 mm keratome was used to enter the anterior chamber through the groove. Viscoelastic was injected into the anterior chamber. An anterior capsulotomy was performed using Utrata forceps in a capsulorrhexis fashion. Hydrodissection and hydrodelineation were performed. Phacoemulsification was performed in [id number]-[id number]-[id number] technique. A total of 53 seconds phaco time was used. Following this, the I/A unit was used to remove residual cortex. Viscoelastic was injected into the capsular bag. Intraocular lens model SN60WF, 18.5 diopters, serial number [id number], was placed in the capsular bag. The I/A unit was used to remove residual viscoelastic. The wound was seen to be watertight under high and low pressure, and no sutures were placed. The intraocular lens was well centered. The pressure was adjusted in the eye to normal pressure. The 4-0 black silk sutures and lid speculum were removed. The eye was shielded after Besivance drops were placed. The patient tolerated the procedure well and was sent to the recovery room in good condition. DICTATING PHYSICIAN: JARRETT YOON M.D. [id number] PHY#: [id number] ID: [id number] JOB#: [id number] ACCT: [id number] cc:JARRETT YOON M.D. >
== END 2017-08-24 12:40 | disposition home or self-care (01) ==
LOC: SC 10:11
PROVIDERS: ATTEND Ophthalmology
DX: H25.812 Combined forms of age-related cataract, left eye (principal); H57.03 Miosis; Z96.1 Presence of intraocular lens; Z86.73 Personal history of transient ischemic attack (TIA), and cerebral infarction without residual deficits; E11.9 Type 2 diabetes mellitus without complications; G40.909 Epilepsy, unspecified, not intractable, without status epilepticus; Z79.84 Long term (current) use of oral hypoglycemic drugs; Z79.4 Long term (current) use of insulin; Z79.899 Other long term (current) drug therapy
CPT/HCPCS: 82962; 66984; V2632; J2250; J3490 ×3; J0171; J2370; 142

== ENCOUNTER 2017-10-18 19:21 | Emergency (ER) | payer OTHER, BC ==
[2017-10-18 19:44] VITALS: BP 117/73
[2017-10-18] MEDS ORDERED: LIDOCAINE 5% (700 MG) TRANSDERMAL ADH..PATCH TP ONE (20:52)
[2017-10-18] MEDS ORDERED: MORPHINE SULFATE 10 MG/ML INJ IV ONE (20:53)
[2017-10-18] MEDS ORDERED: KETOROLAC TROMETHAMINE INJ/PF 30 MG/1 ML SDV IV ONE (20:53)
--- NOTE | 2017-10-18 21:40 | RADIOLOGY REPORT (SQ) ---
EXAM DESCRIPTION: T SPINE AP/LAT COMPLETED DATE/TIME: 10/18/2017 9:23 pm REASON FOR STUDY: back pain COMPARISON: None. NUMBER OF VIEWS: Two views. TECHNIQUE: AP and lateral radiographic images acquired of the thoracic spine. LIMITATIONS: None. FINDINGS: MINERALIZATION: Normal. ALIGNMENT: Normal. No scoliosis. VERTEBRAE: No fracture or bone lesion. Maintained height, normal segmentation. DISCS: No significant loss of height or significant narrowing. No large osteophytes. HARDWARE: None in the spine. MEDIASTINUM AND SOFT TISSUES: Normal heart size and aortic contour. No soft tissue abnormality. VISUALIZED LUNG ONEILL: Clear. OTHER: No other significant finding. IMPRESSION: NO SIGNIFICANT RADIOGRAPHIC FINDING IN THE THORACIC SPINE. TECHNICAL DOCUMENTATION: JOB ID: [id number] [employer]- All Rights Reserved Reading location - IP/workstation name: [email or web address]
[2017-10-18] MEDS ORDERED: MORPHINE SULFATE IR 15 MG TABLET PO ONE (22:41)
[2017-10-18] MEDS ORDERED: ONDANSETRON 4 MG TAB.RAPDIS PO ONE (22:41)
[2017-10-18] MEDS ORDERED: METHOCARBAMOL 750 MG TABLET PO ONE (22:41)
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
[2017-10-18] MEDS ORDERED: ONDANSETRON ODT 4 MG TAB (6 TAB/ER DISP) PO PRN (22:48)
== END 2017-10-18 23:10 | disposition home or self-care (01) ==
LOC: ER 19:21
DX: T14.8XXA Other injury of unspecified body region, initial encounter (principal); M54.6 Pain in thoracic spine; X58.XXXA Exposure to other specified factors, initial encounter; E11.9 Type 2 diabetes mellitus without complications
CPT/HCPCS: 99284; 96374; 96375; 72070; S0119; J3490; J1885; J2270

== ENCOUNTER 2017-10-22 03:08 | Emergency (ER) | payer BC, OTHER ==
[2017-10-22] MEDS ORDERED: HYDROMORPHONE HCL INJ/PF 2 MG/ML AMPULE IM ONE ×2 (03:54→06:30)
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
--- NOTE | 2017-10-22 04:45 | RADIOLOGY REPORT (SQ) ---
EXAM DESCRIPTION: CT CHEST WITHOUT IV CONTRAST COMPLETED DATE/TME: 10/22/2017 03:53 CLINICAL HISTORY: 66 years Male, left back and rib pain Comparison: None. Technique: No contrast. Coronal and sagittal reformat. This exam was performed according to our departmental dose-optimization program, which includes automated exposure control, adjustment of the mA and/or kV according to patient size and/or use of iterative reconstruction technique.[facility]: Dose Right [facility]: CareDose [facility]: Dose Right [facility]: Teradose 4D [facility]: [employer] LIMITATIONS: None Findings: Small right pleural effusion, small coronary arterial calcification, small bilateral lower lobar atelectasis or scar, moderate disc desiccation, lytic vertebral defects at the T7-T8 endplates, healing fractures of the posterior lateral right fourth through 10th ribs. 11th and 12th ribs are not included in the imaging field. Unenhanced inferior neck, axillae, mediastinum, lungs, airway, lymphatics, heart, vasculature, upper abdomen, and musculoskeleton appear otherwise unremarkable. Impression: 1. Lytic lesions at the T7-T8 vertebral endplates. Differential diagnosis includes metastatic disease and discitis. Recommend laboratory correlation and contrast MRI of the thoracic spine. 2. Numerous healing right rib fractures.
[2017-10-22] MEDS ORDERED: PREGABALIN 100 MG CAPSULE PO ONE (04:56)
[2017-10-22 05:20] LABS: ABSOLUTE LYMPHOCYTES (AUTO) 1.6 10^3/uL (0.5-4.7); ABSOLUTE MONOCYTES (AUTO) 0.8 10^3/uL (0.1-1.4); ABSOLUTE NEUT (AUTO) 10.4 10^3/uL (1.7-8.2); BASOPHILS % (AUTO) 0.4 % (0-2); EOSINOPHILS % (AUTO) 0.1 % (0-6); HEMATOCRIT 30.8 % (37.9-51.0); HEMOGLOBIN 10.5 g/dL (13.5-17.0); LYMPHOCYTES % (AUTO) 12.5 % (13-45); MEAN CORPUSCULAR HEMOGLOBIN 27.6 pg (27.0-33.4); MEAN CORPUSCULAR VOLUME 81 fl (80-97); PLATELET COUNT 373 10^3/uL (150-450); RED BLOOD COUNT 3.79 10^6/uL (4.35-5.55); RED CELL DISTRIBUTION WIDTH 14.8 % (11.5-14.0); TOTAL CELLS COUNTED % (AUTO) 100 %; WHITE BLOOD COUNT 12.8 10^3/uL (4.0-10.5)
[2017-10-22 05:48] LABS: ANION GAP 12 (5-19); BLOOD UREA NITROGEN 17 mg/dL (7-20); CALCIUM 8.6 mg/dL (8.4-10.2); CARBON DIOXIDE 28 mmol/L (22-30); CHLORIDE 101 mmol/L (98-107); GLUCOSE 175 mg/dL (75-110); POTASSIUM 4.1 mmol/L (3.6-5.0); SODIUM 140.5 mmol/L (137-145)
[2017-10-22] MEDS ORDERED: VANCOMYCIN HCL INJ 1000 MG VIAL IV ONE (08:32)
--- NOTE | 2017-10-22 08:48 | RADIOLOGY REPORT (SQ) ---
EXAM DESCRIPTION: MRI THORACIC SPINE COMBO COMPLETED DATE/TIME: 10/22/2017 8:24 am REASON FOR STUDY: clarify CT findings COMPARISON: CT CHEST 10/22/2017 TECHNIQUE: Sagittal and Axial imaging includes T1, T2, STIR and gradient echo sequences. T1 post ga dolinium sequences. CONTRAST TYPE AND DOSE: 20 mL IV ProHance gadolinium RENAL FUNCTION: GFR > 60. LIMITATIONS: None. FINDINGS: LOCALIZER: No worrisome findings. ALIGNMENT: Normal. VERTEBRAE and BONE MARROW: T7-8 discitis with adjacent vertebral body osteomyelitis is present. Ther e is a small left paracentral/proximal foraminal epidural abscess measuring about 11 x 5 mm size. Al madison the left T8 costovertebral joint, a small paraspinal abscess is present 1.2 x 1 cm in size. High -grade left T7-8 foraminal stenosis is present related to the epidural abscess. No significant spina l cord mass effect, or abnormal intrinsic cord signal oral contrast enhancement. Diffuse abnormal ci rcumferential dural enhancement is seen from T5 through T9. These findings are best shown on axial T1 image 26 through 28, and sagittal postcontrast T1 images 9- 13. Findings were called at [address] Oconnell as a critical result. HARDWARE: None in the spine. CORD: Normal in size and signal intensity. No abnormal spinal cord enhancement THORACIC DISCS T1-T12: No significant spinal stenosis or exit foraminal stenosis. IMPRESSION: T7-8 discitis with vertebral body osteomyelitis. T7-8 left paracentral/proximal foraminal epidural abscess with high-grade left foraminal narrowing. 1.2 x 1 cm left paraspinal abscess adjacent to the left T8 costovertebral joint. COMMENT: Pertinent findings on the imaging study reported as a CRITICAL RESULT to DR OCONNELL at08:21 on 10/22/2017. Category of Critical Result: EPIDURAL ABSCESS in the thoracic spine TECHNICAL DOCUMENTATION: JOB ID: [id number] [employer]- All Rights Reserved Reading location - IP/workstation name: [email or web address]
[2017-10-22] MEDS ORDERED: HYDROMORPHONE HCL INJ/PF 2 MG/ML AMPULE IV ONE ×2 (09:05→19:39)
[2017-10-22] MEDS ORDERED: CEFEPIME 1 GM/D5W RTU 1 GM/50 ML RTUPB IV ONE (09:53)
[2017-10-22] MEDS: HYDROMORPHONE HCL INJ/PF 2 MG/ML AMPULE IV SCH ×2 (14:08→18:02)
[2017-10-22] MEDS ORDERED: CEFEPIME 2 GM/D5W RTU 2 GM/50 ML RTUPB IV SCH (19:00)
--- NOTE | 2017-10-22 19:39 | ER Document Report ---
Doctor's Note Notes: 10/22/17 19:39 I was asked to evaluate patient prior to transfer, is stable at this time requested pain control will give milligram Dilaudid
[2017-10-22 19:51] VITALS: BP 144/76
[2017-10-22] MEDS ORDERED: VANCOMYCIN HCL INJ 1000 MG VIAL IV SCH (20:00)
== END 2017-10-22 20:02 | disposition short-term general hospital (02) ==
LOC: ER 03:08
DX: G06.1 Intraspinal abscess and granuloma (principal); M46.44 Discitis, unspecified, thoracic region; M46.24 Osteomyelitis of vertebra, thoracic region; R09.89 Other specified symptoms and signs involving the circulatory and respiratory systems; E11.9 Type 2 diabetes mellitus without complications; Z98.890 Other specified postprocedural states; Z87.828 Personal history of other (healed) physical injury and trauma; Z88.5 Allergy status to narcotic agent
CPT/HCPCS: 96376; 99285; 96372; 96375; 96365; 96366; 96367; 36415; 87040; 82962; 85025; 85652; 86140; 87077; 80048; 72157; 87186; 71250; A9576; J1170; J3370; J0692 ×2

== ENCOUNTER 2019-09-07 10:46 | Emergency (ER) | payer BC, MEDICARE ==
[2019-09-07 10:51] VITALS: BP 148/95
--- NOTE | 2019-09-07 11:02 | ER Document Report ---
ED General - General Stated Complaint: LEFT LEG PAIN/SWELLING Time Seen by Provider: 09/07/19 10:50 Primary Care Provider: LOAN ROSENBAUM MD [ACTIVE STAFF] - Follow up in 3-5 days LOIS VICENTE MD [Primary Care Provider] - Follow up as needed Notes: 68-year-old male presents with left leg pain and swelling for several weeks, has worse redness and pain for 1 day. This pain is been ongoing and the swelling is been ongoing, so his primary decided to order an ultrasound today which apparently showed "a blood clot from a pelvis to my cath." He denies chest pain or shortness of breath, has never had a DVT and is not on blood thinners. He denies chronic or recurrent leg edema in the past but has had several episodes of MRSA. TRAVEL OUTSIDE OF THE [place] IN LAST 30 DAYS: No - Related Data Allergies/Adverse Reactions: tramadol Allergy (Verified 10/22/17 03:11) Past Medical History - Social History Smoking Status: Never Smoker Family History: Reviewed & Not Pertinent, Hypertension - Past Medical History Cardiac Medical History: Denies: Hx Heart Attack, Hx Hypertension Pulmonary Medical History: Denies: Hx Asthma Neurological Medical History: Reports: Hx Seizures - FELL LAST OCTOBER MRI SHOWED POST CONCUSSIVE SYNDROME AFTER FALL. Denies: Hx Cerebrovascular Accident Endocrine Medical History: Reports: Hx Diabetes Mellitus Type 2 Renal/ Medical History: Denies: Hx Peritoneal Dialysis GI Medical History: Denies: Hx Hepatitis, Hx Hiatal Hernia, Hx Ulcer Musculoskeletal Medical History: Infectious Medical History: Denies: Hx Hepatitis Past Surgical History: Reports: Hx Abdominal Surgery - intestinal polyp removal, Hx Tonsillectomy, Other - Transverse colectomy secondary to polyps. Denies: Hx Open Heart Surgery, Hx Pacemaker - Immunizations Hx Diphtheria, Pertussis, Tetanus Vaccination: Yes Review of Systems - Review of Systems Notes: REVIEW OF SYSTEMS GEN: Denies fever, chills, weight loss ENT: Denies sore throat, nasal discharge, ear pain EYES: Denies blurry vision, eye pain, discharge CV: Denies chest pain, palpitations, edema RESP: Denies cough, shortness of breath, wheezing GI: Denies abdominal pain, nausea, vomiting, diarrhea MSK: Leg swelling SKIN: Denies rash, skin lesions LYMPH: Denies swollen glands/lymph nodes NEURO: Denies headache, focal weakness or numbness, dizziness PSYCH: Denies depression, suicidal or homicidal ideation PHYSICAL EXAMINATION General: No acute distress, well-nourished Head: Atraumatic, normocephalic ENT: Mouth normal, oropharynx moist, no exudates or tonsillar enlargement Eyes: Conjunctiva normal, pupils equal, lids normal Neck: No JVD, supple, no guarding CVS: Normal rate, regular rhythm, no murmurs Resp: No resp distress, equal and normal breath sounds bilaterally GI: Nondistended, soft, no tenderness to palpation, no rebound or guarding Ext: Patient has mild edema from the thigh to the ankle. There is some petechial rash and some mild erythema surrounding a sore on his calf. There is no tenderness no Homans sign and his sensation and pulses are intact. Back: No CVA or midline TTP Skin: No rash, warm Lymphatic: No lymphadeopathy noted Neuro: Awake, alert. Face symmetric. GCS 15. Physical Exam - Vital signs Vitals: Temp Pulse Resp BP Pulse Ox 97.8 F 90 20 148/95 H 96 09/07/19 10:50 09/07/19 10:50 09/07/19 10:50 09/07/19 10:50 09/07/19 10:50 Course - Re-evaluation Re-evalutation: 09/07/19 10:59 Patient presents with what sounds like a subacute DVT. There is no signs of phlegmasia, no signs of arterial insufficiency no known risk factors and he is not on blood thinners. He is a diabetic, but his labs have been fine in the past. I will confirm the finding with the outpatient ultrasound center, and plan to start him on an outpatient oral anticoagulation regimen. He does have some mild signs of cellulitis and has had in the past I am probably going to add doxycycline to his regimen 09/07/19 11:24 Received report from imaging facility. No comment as to acute or chronic but I am guessing subacute based on symptoms, nearlyocclusive DVT throughout the left venous system There is no phlegmasia on exam and I do not think this is emergent but he will need to see vascular surgery. Discharged with Eliquis starter pack, doxyDC Bactrim. Discussed compression stockings and PE precautions. Will refer back to primary. I have discussed with the patient there likely diagnosis, aftercare plan, follow-up plans and my usual and customary return precautions. They verbalized understanding of this. - Vital Signs Vital signs: Temp Pulse Resp BP Pulse Ox 97.8 F 90 20 148/95 H 96 09/07/19 10:50 09/07/19 10:50 09/07/19 10:50 09/07/19 10:50 09/07/19 10:50 Discharge - Discharge Clinical Impression: Deep vein thrombosis, lower left extremity Qualifiers: Affected thrombotic vein of extremity: popliteal Chronicity: acute Qualified Code(s): I82.432 - Acute embolism and thrombosis of left popliteal vein Condition: Good Disposition: HOME, SELF-CARE Instructions: DVT Outpatient Treatment ([facility]) Prescriptions: Doxycycline Hyclate 100 mg PO BID #10 tablet. Apixaban [Eliquis 5 mg Tablet] 5 mg PO DAILY #72 tablet Referrals: LOIS VICENTE MD [Primary Care Provider] - Follow up as needed LOAN ROSENBAUM MD [ACTIVE STAFF] - Follow up in 3-5 days
== END 2019-09-07 11:20 | disposition home or self-care (01) ==
LOC: ER 10:46
DX: I82.432 Acute embolism and thrombosis of left popliteal vein (principal); E11.9 Type 2 diabetes mellitus without complications; Z88.6 Allergy status to analgesic agent
CPT/HCPCS: 99283

== ENCOUNTER 2019-09-12 08:15 | Observation (INO) | payer BC, MEDICARE ==
--- NOTE | 2019-09-12 08:26 | ER Document Report ---
ED General - General Chief Complaint: Shortness Of Breath Stated Complaint: VOMITING, SHORT OF BREATH Time Seen by Provider: 09/12/19 08:26 Notes: This is a 68-year-old male with a history of DVT diagnosed last week presenting with acute shortness of breath this morning. Woke up and felt short of breath but has been feeling without energy for the last few days But had no shortness of breath or chest pain. Today complains of mostly dyspnea exertion non-positional with no chest pain hemoptysis or cough. DVT was diagnosed on the left side, appeared to be acute on chronic and was not occlusive at the time. He was discharged with follow-up with both his primary and vascular surgery although has not been able to do either of those. He says he has been compliant with his anticoagulation. TRAVEL OUTSIDE OF THE [place] IN LAST 30 DAYS: No - Related Data Allergies/Adverse Reactions: tramadol Allergy (Verified 09/12/19 10:31) Past Medical History - General Information source: Patient - Social History Smoking Status: Former Smoker Family History: Reviewed & Not Pertinent, Hypertension - Past Medical History Cardiac Medical History: Denies: Hx Heart Attack, Hx Hypertension Pulmonary Medical History: Denies: Hx Asthma Neurological Medical History: Reports: Hx Seizures - FELL LAST OCTOBER MRI SHOWED POST CONCUSSIVE SYNDROME AFTER FALL. Denies: Hx Cerebrovascular Accident Endocrine Medical History: Reports: Hx Diabetes Mellitus Type 2 Renal/ Medical History: Denies: Hx Peritoneal Dialysis GI Medical History: Denies: Hx Hepatitis, Hx Hiatal Hernia, Hx Ulcer Musculoskeletal Medical History: Infectious Medical History: Denies: Hx Hepatitis Past Surgical History: Reports: Hx Abdominal Surgery - intestinal polyp removal, Hx Tonsillectomy, Other - Transverse colectomy secondary to polyps. Denies: Hx Open Heart Surgery, Hx Pacemaker - Immunizations Hx Diphtheria, Pertussis, Tetanus Vaccination: Yes Review of Systems - Review of Systems Notes: REVIEW OF SYSTEMS GEN: Denies fever, chills, weight loss ENT: Denies sore throat, nasal discharge, ear pain EYES: Denies blurry vision, eye pain, discharge CV: Denies chest pain, palpitations, edema RESP: This of breath GI: Denies abdominal pain, nausea, vomiting, diarrhea MSK: Denies joint pain/swelling, edema, SKIN: Denies rash, skin lesions LYMPH: Denies swollen glands/lymph nodes NEURO: Denies headache, focal weakness or numbness, dizziness PSYCH: Denies depression, suicidal or homicidal ideation PHYSICAL EXAMINATION General: No acute distress, well-nourished Head: Atraumatic, normocephalic ENT: Mouth normal, oropharynx moist, no exudates or tonsillar enlargement Eyes: Conjunctiva normal, pupils equal, lids normal Neck: No JVD, supple, no guarding CVS: Normal rate, regular rhythm, no murmurs Resp: No resp distress, equal and normal breath sounds bilaterally GI: Nondistended, soft, no tenderness to palpation, no rebound or guarding Ext: No deformities, no edema, normal range of motion in upper and lower ext Back: No CVA or midline TTP Skin: No rash, warm Lymphatic: No lymphadeopathy noted Neuro: Awake, alert. Face symmetric. GCS 15. Physical Exam - Vital signs Vitals: Temp 97.6 F 09/12/19 08:52 Course - Re-evaluation Re-evalutation: 09/12/19 10:56 Breath with known DVT, normal vital signs Likely PE will check for Joshua pneumonia Labs: Normal CT: Bilateral PE No RV strain 09/12/19 11:25 Given Lovenox 1/kg. Discussed with . Distant history of brain aneurysm/bleeding, but this would be more important at that time. I have discussed him with Dr. Dickens the hospitalist who will evaluate him for admission. 09/12/19 12:43 CT confirms RV strain. Discussed with Kim spain, agrees with Lovenox and will consider heparinCoumadin as inpatient. - Vital Signs Vital signs: Temp Pulse Resp BP Pulse Ox 97.6 F 80 22 H 148/91 H 99 09/12/19 08:57 09/12/19 08:57 09/12/19 08:57 09/12/19 08:57 09/12/19 08:57 - Laboratory Result Diagrams: 09/12/19 08:35 09/12/19 08:35 Laboratory results interpreted by me: 09/12/19 09/12/19 09/12/19 08:35 08:35 08:35 RDW 14.6 H Plt Count 125 L PT 17.4 H Sodium 136.2 L Glucose 260 H - Diagnostic Test Radiology reviewed: Image reviewed, Reports reviewed - EKG Interpretation by Me EKG shows normal: Sinus rhythm Rate: Normal Rhythm: NSR - No ST or T wave changes Discharge - Discharge Clinical Impression: Pulmonary embolus Qualifiers: Pulmonary embolism type: unspecified Chronicity: acute Acute cor pulmonale presence: unspecified Qualified Code(s): I26.99 - Other pulmonary embolism without acute cor pulmonale Condition: Good Disposition: ADMITTED OBSERVATION Admitting Provider: Maninder (Hospitalist) Unit Admitted: Telemetry
[2019-09-12 08:56] LABS: ABSOLUTE LYMPHOCYTES (AUTO) 1.7 10^3/uL (0.5-4.7); ABSOLUTE MONOCYTES (AUTO) 0.5 10^3/uL (0.1-1.4); ABSOLUTE NEUT (AUTO) 4.2 10^3/uL (1.7-8.2); BASOPHILS % (AUTO) 0.5 % (0-2); EOSINOPHILS % (AUTO) 0.8 % (0-6); HEMATOCRIT 44.4 % (37.9-51.0); HEMOGLOBIN 15.3 g/dL (13.5-17.0); LYMPHOCYTES % (AUTO) 26.2 % (13-45); MEAN CORPUSCULAR HEMOGLOBIN 29.8 pg (27.0-33.4); MEAN CORPUSCULAR HGB CONC 34.5 g/dL (32.0-36.0); MEAN CORPUSCULAR VOLUME 86 fl (80-97); MONOCYTES % (AUTO) 7.1 % (3-13); PLATELET COUNT 125 10^3/uL (150-450); RED BLOOD COUNT 5.14 10^6/uL (4.35-5.55); RED CELL DISTRIBUTION WIDTH 14.6 % (11.5-14.0); SEGMENTED NEUTROPHILS % (AUTO) 65.4 % (42-78); TOTAL CELLS COUNTED % (AUTO) 100 %; WHITE BLOOD COUNT 6.4 10^3/uL (4.0-10.5)
[2019-09-12 09:21] LABS: ANION GAP 11 (5-19); BLOOD UREA NITROGEN 18 mg/dL (7-20); CALCIUM 9.1 mg/dL (8.4-10.2); CARBON DIOXIDE 22 mmol/L (22-30); CHLORIDE 103 mmol/L (98-107); GLUCOSE 260 mg/dL (75-110); POTASSIUM 4.5 mmol/L (3.6-5.0)
[2019-09-12 09:33] LABS: NT PRO BNP 33 pg/mL (<125)
[2019-09-12 09:36] LABS: TROPONIN I < 0.012 ng/mL
[2019-09-12 09:41] LABS: INTERNATIONAL RATION (INR) 1.41; PROTHROMBIN TIME 17.4 SEC (11.4-15.4)
--- NOTE | 2019-09-12 11:06 | RADIOLOGY REPORT (SQ) ---
EXAM DESCRIPTION: CTA CHEST IMAGES COMPLETED DATE/TIME: 09/12/2019 10:45 am REASON FOR STUDY: dt sob COMPARISON: None. TECHNIQUE: CT scan of the chest performed using helical scanning technique with dynamic intravenous contrast injection. Images reviewed with lung, soft tissue and bone windows. Reconstructed coronal and sagittal MPR images reviewed. Additional 3 dimensional post-processing performed to develop Maximal Intensity Projection images (PA P). All images stored on PACS. All CT scanners at this facility use dose modulation, iterative reconstruction, and/or weight based d osing when appropriate to reduce radiation dose to as low as reasonably achievable (ALARA). [facility]: Dose Right [facility]: CareDose [facility]: Dose Right [facility]: Teradose 4D [facility]: PhotoSolar CONTRAST TYPE AND DOSE: Contrast/concentration: Isovue 350.00 mg/ml; Total Contrast Delivered: 71.0 ml; Total Saline Delivered: 67.2 ml Contrast bolus optimized for the pulmonary arteries. RENAL FUNCTION: GFR > 60. RADIATION DOSE: CT Rad equipment meets quality standard of care and radiation dose reduction techniq ues were employed. CTDIvol: 13.2 - 36.0 mGy. DLP: 1278 mGy-cm. LIMITATIONS: None. FINDINGS: LUNGS AND PLEURA: Atelectatic opacities in the basal segments of the right lower lobe. Th ere is no peripheral wedge-shaped consolidation, pleural effusion, ground-glass opacification or pneu mothorax. AORTA AND GREAT VESSELS: No aneurysm or dissection of the thoracic aorta. HEART: The interventricular septum is flattened and the ratio of the right atrium to the right ventri kat is greater or equal than 1. There is no reflux of contrast into the IVC of hepatic veins or card iomegaly/pericardial effusion. PULMONARY ARTERIES: There are emboli within lobar and segmental branches of the pulmonary arteries to the right upper lobe, right middle lobe, right lower lobe, left upper lobe, lingula and left lower l obe. HILAR AND MEDIASTINAL STRUCTURES: No adenopathy or mass. HARDWARE: None in the chest. UPPER ABDOMEN: Complex 2.3 x 3.2 cm right adrenal nodule that contains soft tissue and fat attenuatio n components. THYROID AND OTHER SOFT TISSUES: No adenopathy or mass. BONES: Chronic fracture deformities of several right-sided ribs and osseous bridge between the right lateral 4th and 5th ribs. 3D MIPS: Confirm above findings. OTHER: No other finding. IMPRESSION: 1. Emboli within lobar and segmental branches of the pulmonary arteries to the right upp er lobe, right middle lobe, right lower lobe, left upper lobe, lingula and left lower lobe. 2. Evidence of right ventricular strain - flattening of the interventricular septum and reversal of the normal ratio of the right atrium to the right ventricle. 3. Complex 2.3 x 3.2 cm right adrenal nodule that contain soft tissue and fat attenuation component. COMMENT: Quality ID # [id number]: Final reports with documentation of one or more dose reduction techniques (e.g., Automated exposure control, adjustment of the mA and/or kV according to patient size, use of iterative reconstruction technique) TECHNICAL DOCUMENTATION: JOB ID: [id number] 2010 [employer]- All Rights Reserved Reading location - IP/workstation name: [email or web address]
[2019-09-12] MEDS ORDERED: ONDANSETRON HCL INJ/PF 4 MG/2 ML SDV IV PRN (11:47)
--- NOTE | 2019-09-12 15:32 | PDOC H&P ---
History of Present Illness Admission Date/PCP: 09/12/19 12:05 LOIS VICENTE MD History of Present Illness: JERAMY CONDON is a 68 year old male with multiple medical comorbidities i ncluding morbid obesity, diabetes mellitus, seizures, and a partial colectomy due to multiple polyps, who presents with shortness of breath. He has not been febrile. He has not had a cough. He was diagnosed with a DVT in this ER for 5 days ago and has been on Eliquis 10 mg twice a day since then. He has not yet completed the loading phase. Did not have any chest pain, but he did complain of some shortness of breath got worse with exertion. He said it lasted for couple hours this morning but he feels fine now. He was not hypoxic. His troponin was normal. His BNP was normal. He was hemodynamically stable with a good blood pressure. Chest CT shows multiple emboli in all lobes of his lungs. The CT showed some septal flattening indicating possible right heart strain, with a normal troponins and normal BMP would suggest against this, and based on his body habitus he may have obstructive sleep apnea and subsequent pulmonary hypertension. Past Medical History Cardiac Medical History: Denies: Myocardial Infarction, Hypertension Pulmonary Medical History: Denies: Asthma Neurological Medical History: Reports: Seizures - FELL LAST OCTOBER MRI SHOWED POST CONCUSSIVE SYNDROME AFTER FALL Endocrine Medical History: Reports: Diabetes Mellitus Type 2 GI Medical History: Denies: Hepatitis, Hiatal Hernia Musculoskeltal Medical History: Hematology: Denies: Anemia, Sickle Cell Disease Past Surgical History Past Surgical History: Reports: Tonsillectomy, Other - Transverse colectomy secondary to polyps Denies: Pacemaker Social History Smoking Status: Former Smoker Frequency of Alcohol Use: None Hx Recreational Drug Use: No Hx Prescription Drug Abuse: No Family History Family History: Reviewed & Not Pertinent, Hypertension Parental Family History Reviewed: Yes Children Family History Reviewed: Yes Sibling(s) Family History Reviewed.: Yes Medication/Allergy Home Medications: Cyclosporine 0.05% Oph Emulsio [Restasis 0.05% Oph Emulsion Pf 0.4 ml] 1 drop OU BID 11/07/16 Dapagliflozin Propanediol [Farxiga] 5 mg PO QAM 11/07/16 Insulin Glargine,Hum.rec.anlog [Tounasra Shah] 80 units SQ QHS 11/07/16 Pregabalin [Lyrica] 450 mg PO QHS 11/07/16 Besifloxacin HCl [Besivance 0.6% Oph Susp 5 ml] 1 drop OP ASDIR 07/14/17 Buprenorphine [Butrans] 1 each TD .WEEKLY 07/14/17 Difluprednate [Durezol] 1 drop OP ASDIR 07/14/17 Levetiracetam [Keppra 500 mg Tablet] 500 mg PO DAILY 07/14/17 Nepafenac [Ilevro] 1.7 drop OP ASDIR 07/14/17 Lidocaine [Lidoderm 5% (700 mg) Transdermal Patch] 1 patch TP DAILY #10 adh..patch 10/18/17 Methocarbamol [Robaxin 750 mg Tablet] 750 mg PO ASDIR PRN #40 tablet 10/18/17 Morphine Sulfate [Morphine Ir 15 Mg Tablet] 15 mg PO Q4H PRN #12 tablet 10/18/17 Ondansetron [Zofran Odt] 8 mg PO Q6 PRN #15 tab.rapdis 10/18/17 Pregabalin [Lyrica] 150 mg PO DAILY #20 capsule 10/22/17 Apixaban [Eliquis 5 mg Tablet] 5 mg PO DAILY #72 tablet 09/07/19 Doxycycline Hyclate 100 mg PO BID #10 tablet. 09/07/19 Allergies/Adverse Reactions: tramadol Allergy (Verified 09/12/19 10:31) Review of Systems All systems: reviewed and no additional remarkable complaints except as stated - All systems were reviewed and were negative except as noted in the HPI Physical Exam Vital Signs: Temp Pulse Resp BP Pulse Ox 97.6 F 80 22 H 148/91 H 99 09/12/19 08:57 09/12/19 08:57 09/12/19 08:57 09/12/19 08:57 09/12/19 08:57 Intake & Output 09/11/19 09/12/19 09/13/19 06:59 06:59 06:59 Weight 108.862 kg General appearance: PRESENT: no acute distress, cooperative, disheveled, morbid ly obese Head exam: PRESENT: atraumatic, normocephalic Eye exam: PRESENT: EOMI, PERRLA. ABSENT: conjunctival injection, nystagmus, scleral icterus Ear exam: PRESENT: normal external ear exam Mouth exam: PRESENT: moist, neck supple Teeth exam: PRESENT: poor dentation Throat exam: ABSENT: post pharyngeal erythema Neck exam: PRESENT: full ROM. ABSENT: carotid bruit, JVD, lymphadenopathy, thyromegaly Respiratory exam: PRESENT: clear to auscultation sherie, symmetrical, unlabored. ABSENT: accessory muscle use, chest wall tenderness, crackles, prolonged expiratory phas, rhonchi, tachypnea, wheezes Cardiovascular exam: PRESENT: RRR, +S1, +S2 Pulses: PRESENT: normal carotid pulses Vascular exam: PRESENT: normal capillary refill GI/Abdominal exam: PRESENT: normal bowel sounds, soft, other - Pendulous abdomen. ABSENT: distended, guarding, rebound Extremities exam: ABSENT: clubbing, pedal edema Musculoskeletal exam: PRESENT: normal inspection. ABSENT: deformity Neurological exam: PRESENT: alert, awake, oriented to person, oriented to place, oriented to time, oriented to situation, CN II-XII grossly intact. ABSENT: m otor sensory deficit Psychiatric exam: PRESENT: appropriate affect, normal mood Skin exam: PRESENT: dry, warm Results Laboratory Results: 09/12/19 08:35 09/12/19 08:35 09/12/19 09/12/19 08:35 08:35 WBC 6.4 RBC 5.14 Hgb 15.3 Hct 44.4 MCV 86 MCH 29.8 MCHC 34.5 RDW 14.6 H Plt Count 125 L Seg Neutrophils % 65.4 Sodium 136.2 L Potassium 4.5 Chloride 103 Carbon Dioxide 22 Anion Gap 11 BUN 18 Creatinine 1.12 Est GFR ( Amer) > 60 Glucose 260 H Calcium 9.1 09/12/19 08:35 Troponin I < 0.012 NT-Pro-B Natriuret Pep 33 Impressions: Chest/Abdomen CTA 09/12/19 08:37 IMPRESSION: 1. Emboli within lobar and segmental branches of the pulmonary arteries to the right upper lobe, right middle lobe, right lower lobe, left upper lobe, lingula and left lower lobe. 2. Evidence of right ventricular strain - flattening of the interventricular septum and reversal of the normal ratio of the right atrium to the right ventricle. 3. Complex 2.3 x 3.2 cm right adrenal nodule that contain soft tissue and fat attenuation component. Assessment and Plan - Diagnosis (1) Pulmonary embolus Qualifiers: Pulmonary embolism type: unspecified Chronicity: acute Acute cor pulmonale presence: without acute cor pulmonale Qualified Code(s): I26.99 - Other pulmonary embolism without acute cor pulmonale Is this a current diagnosis for this admission?: Yes Plan: CT of his chest said that there is some septal flattening consistent with right ventricular strain, but his EKG is not consistent with a strain pattern, his BNP is not elevated, and his troponin is negative. We will get an echocardiogram to better evaluate, but he shows no signs of cardiac decompensation right now. He is also hemodynamically stable, and is not hypoxic. He is not tachycardic and does not have any chest pain. In fact, shortness of breath this is resolved. He was on Eliquis and was in the loading phase. Put him on some Lovenox for the time being. Can probably resume Eliquis at discharge and restart the loading phase. The other choice would be to switch him over to Coumadin. (2) Morbid obesity Is this a current diagnosis for this admission?: Yes Plan: Strongly encourage lifestyle modification. I would be not surprised if he has obstructive sleep apnea with subsequent pulmonary hypertension. (3) Seizures Is this a current diagnosis for this admission?: Yes Plan: Continue Keppra (4) Deep vein thrombosis, lower left extremity Qualifiers: Affected thrombotic vein of extremity: popliteal Chronicity: acute Qualified Code(s): I82.432 - Acute embolism and thrombosis of left popliteal vein Is this a current diagnosis for this admission?: Yes Plan: Anticoagulation as previously noted (5) Diabetes Qualifiers: Diabetes mellitus type: type 2 Diabetes mellitus assisted insulin use: with assisted use Diabetes mellitus complication status: without complication Qualified Code(s): E11.9 - Type 2 diabetes mellitus without complications; 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 Is this a current diagnosis for this admission?: Yes Plan: We will continue home medications - Time Time Spent with patient: 35 or more minutes - Inpatient Certification Based on my medical assessment, after consideration of the patient's comorbidities, presenting symptoms, or acuity I expect that the services needed warrant INPATIENT care.: Yes I certify that my determination is in accordance with my understanding of Medicare's requirements for reasonable and necessary INPATIENT services [42 CFR 412.3e].: Yes Medical Necessity: Failure to Improve With Outpatient Therapy, Significant Comorbidiites Make Outpatient Treatment Too Risky, Need Close Monitoring Due to Risk of Patient Decompensation, Need For Continuous Telemetry Monitoring, Risk of Complication if Not Cared For in Hospital
--- NOTE | 2019-09-12 18:19 | EKG REPORT ---
SEVERITY:- NORMAL ECG - SINUS RHYTHM : Confirmed by: Hiram Berumen MD 12-Sep-2019 18:18:24
[2019-09-12] MEDS: ENOXAPARIN SODIUM INJ 120 MG/0.8 ML DISP.SYRIN SUBCUT SCH (21:05)
[2019-09-13 05:54] LABS: HEMATOCRIT 42.4 % (37.9-51.0); HEMOGLOBIN 14.7 g/dL (13.5-17.0); MEAN CORPUSCULAR HEMOGLOBIN 29.9 pg (27.0-33.4); MEAN CORPUSCULAR HGB CONC 34.6 g/dL (32.0-36.0); MEAN CORPUSCULAR VOLUME 86 fl (80-97); PLATELET COUNT 113 10^3/uL (150-450); RED BLOOD COUNT 4.91 10^6/uL (4.35-5.55); RED CELL DISTRIBUTION WIDTH 14.3 % (11.5-14.0); WHITE BLOOD COUNT 6.2 10^3/uL (4.0-10.5)
[2019-09-13 06:14] LABS: ANION GAP 9 (5-19); BLOOD UREA NITROGEN 19 mg/dL (7-20); CALCIUM 8.9 mg/dL (8.4-10.2); CARBON DIOXIDE 23 mmol/L (22-30); CHLORIDE 103 mmol/L (98-107); GLUCOSE 217 mg/dL (75-110)
[2019-09-13] MEDS: ENOXAPARIN SODIUM INJ 120 MG/0.8 ML DISP.SYRIN SUBCUT SCH ×2 (09:09→21:57)
[2019-09-13 15:22] LABS: APPEARANCE,URINE CLEAR; BILIRUBIN,URINE NEGATIVE (NEGATIVE); COLOR,URINE YELLOW; GLUCOSE, URINE >=500 mg/dL (NEGATIVE); KETONES,URINE TRACE mg/dL (NEGATIVE); LEUKOCYTE ESTERASE,URINE NEGATIVE (NEGATIVE); NITRITE,URINE NEGATIVE (NEGATIVE); PROTEIN,URINE NEGATIVE (NEGATIVE); URINE SPECIFIC GRAVITY 1.031; UROBILINOGEN,URINE NEGATIVE mg/dL (<2.0)
--- NOTE | 2019-09-13 15:40 | PDOC PROGRESS REPORT ---
Subjective Progress Note for:: 09/13/19 Subjective:: No adverse events overnight. No new complaints. No chest pain or shortness of breath. Vital signs been stable. SPO2 and blood pressure are well within normal limits. No tachycardia. He said he feels fine. He said that he had a recent chest CT at the [facility] ER in [facility]. Reason For Visit: BILATERAL PE Physical Exam Vital Signs: Temp Pulse Resp BP Pulse Ox 98.0 F 85 16 132/79 H 98 09/13/19 11:27 09/13/19 14:00 09/13/19 11:27 09/13/19 11:27 09/13/19 11:27 Intake & Output 09/12/19 09/13/19 09/14/19 06:59 06:59 06:59 Intake Total 380 860 Output Total 495 100 Balance -115 760 Weight 111.4 kg General appearance: PRESENT: no acute distress, cooperative, disheveled, morbidly obese Respiratory exam: PRESENT: clear to auscultation sherie, symmetrical, unlabored. ABSENT: accessory muscle use, chest wall tenderness, crackles, prolonged expiratory phas, rhonchi, tachypnea, wheezes Cardiovascular exam: PRESENT: RRR, +S1, +S2 Pulses: PRESENT: normal carotid pulses Vascular exam: PRESENT: normal capillary refill GI/Abdominal exam: PRESENT: normal bowel sounds, soft, other - Pendulous abdomen. ABSENT: distended, guarding, rebound Extremities exam: ABSENT: clubbing, pedal edema Musculoskeletal exam: PRESENT: normal inspection. ABSENT: deformity Neurological exam: PRESENT: alert, awake, oriented to person, oriented to place, oriented to time, oriented to situation Psychiatric exam: PRESENT: appropriate affect, normal mood Skin exam: PRESENT: dry, warm Results Laboratory Results: 09/13/19 05:06 09/13/19 05:06 09/13/19 09/13/19 09/13/19 05:06 05:06 15:04 WBC 6.2 RBC 4.91 Hgb 14.7 Hct 42.4 MCV 86 MCH 29.9 MCHC 34.6 RDW 14.3 H Plt Count 113 L Sodium 135.4 L Potassium 4.0 Chloride 103 Carbon Dioxide 23 Anion Gap 9 BUN 19 Creatinine 1.24 Est GFR ( Amer) > 60 Glucose 217 H Calcium 8.9 Urine Color YELLOW Urine Appearance CLEAR Urine pH 5.0 Ur Specific [place] 1.031 Urine Protein NEGATIVE Urine Glucose (UA) >=500 H Urine Ketones TRACE H Urine Blood NEGATIVE Urine Nitrite NEGATIVE Ur Leukocyte Esterase NEGATIVE Urine WBC (Auto) 0 Urine RBC (Auto) 1 09/12/19 08:35 Troponin I < 0.012 NT-Pro-B Natriuret Pep 33 Impressions: Chest/Abdomen CTA 09/12/19 08:37 IMPRESSION: 1. Emboli within lobar and segmental branches of the pulmonary arteries to the right upper lobe, right middle lobe, right lower lobe, left upper lobe, lingula and left lower lobe. 2. Evidence of right ventricular strain - flattening of the interventricular septum and reversal of the normal ratio of the right atrium to the right ventricle. 3. Complex 2.3 x 3.2 cm right adrenal nodule that contain soft tissue and fat attenuation component. Assessment and Plan - Diagnosis (1) Pulmonary embolus Qualifiers: Pulmonary embolism type: unspecified Chronicity: acute Acute cor pulmonale presence: without acute cor pulmonale Qualified Code(s): I26.99 - Other pulmonary embolism without acute cor pulmonale Is this a current diagnosis for this admission?: Yes Plan: With had him on Lovenox. He had been on the loading phase of Eliquis. Echocardiogram has been done to see if there is any evidence of any right heart strain. Awaiting the read now. He said that he had a chest CT done at a freestanding ER recently. I will try to obtain the results and see if this was done since he was diagnosed with his DVT, and will compare the read to the one that we have here. The question now is whether or not this constitutes an actual treatment failure. If the clots were already in his lungs, which is possible, then he can probably just continue on Eliquis as before. We would probably restart his loading phase. If there were evidence of clots, assuming t hat the CT was an actual CTA like the one we did here, then this could potentially be considered a treatment failure and we would consider doing a loading phase of Coumadin with Lovenox bridging. (2) Morbid obesity Is this a current diagnosis for this admission?: Yes Plan: Strongly encourage lifestyle modification. I would be not surprised if he has obstructive sleep apnea with subsequent pulmonary hypertension. (3) Seizures Is this a current diagnosis for this admission?: Yes Plan: Continue Keppra (4) Deep vein thrombosis, lower left extremity Qualifiers: Affected thrombotic vein of extremity: popliteal Chronicity: acute Qualified Code(s): I82.432 - Acute embolism and thrombosis of left popliteal vein Is this a current diagnosis for this admission?: Yes Plan: Anticoagulation as previously noted (5) Diabetes Qualifiers: Diabetes mellitus type: type 2 Diabetes mellitus mcfp insulin use: with mcfp use Diabetes mellitus complication status: without complication Qualified Code(s): E11.9 - Type 2 diabetes mellitus without complications; 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
--- NOTE | 2019-09-13 16:00 | XCELERA REPORT ---
[address] [address] Transthoracic Echocardiogram Report Name: JERAMY CONDON Age: 68 yrs Gender: Male : 1950 Patient Status: Inpatient Patient Location: [address] [place] [address] Study Date: 09/13/2019 09:43 AM History: Pulmonary embolism Height: 69 in Weight: 240 lb BSA: 2.2 m2 Procedure: A complete two-dimensional transthoracic echocardiogram was performed (2D, M-mode, spectral and color flow Doppler). The study was technically difficult with many images being suboptimal in quality. Reason For Study: Bilateral PE Previous Evaluation: No previous studies were available. History: Pulmonary embolism. Ordering Physician: DELVIS LAY Performed By: Joan Randall Interpretation Summary difficult/ limited study due to body habitus. Left ventricular systolic function is normal. The Ejection Fraction estimate is 55-60% The right ventricular systolic function is normal. There is a trace amount of mitral regurgitation There is a trace amount of tricuspid regurgitation There is no pericardial effusion. MMode/2D Measurements & Calculations RVDd: 2.1 cm LVIDd: 3.9 cm FS: 33.4 % Ao root diam: 2.9 cm IVSd: 1.1 cm LVIDs: 2.6 cm EDV(Teich): 64.2 ml Ao root area: 6.6 cm2 LVPWd: 1.1 cm ESV(Teich): 23.9 ml LA dimension: 2.8 cm EF(Teich): 62.7 % Doppler Measurements & Calculations MV E max nan: MV P1/2t max nan: Ao V2 max: LV V1 max P.9 cm/sec 63.8 cm/sec 82.1 cm/sec 1.4 mmHg MV A max nan: MV P1/2t: 53.3 msec Ao max PG: LV V1 max: 81.6 cm/sec MVA(P1/2t): 4.1 cm2 2.7 mmHg 59.6 cm/sec MV E/A: 0.71 MV dec slope: 350.8 cm/sec2 MV dec time: 0.25 sec PA V2 max: MV P1/2t-pr_phl: 60.0 cm/sec 53.3 msec PA max P.4 mmHg Left Ventricle The left ventricle is grossly normal size. There is mild concentric left ventricular hypertrophy. Left ventricular systolic function is normal. The Ejection Fraction estimate is 55-60%. Doppler measurements suggest impaired left ventricular relaxation, which is associated with grade I/IV or mild diastolic dysfunction. Regional wall motion abnormalities cannot be excluded due to limited visualization. Right Ventricle The right ventricle is not well visualized secondary to technical limitations. The right ventricular systolic function is normal. Atria Right atrium not well visualized secondary to technical limitations. The left atrial size is normal. Mitral Valve There is a trace amount of mitral regurgitation. Aortic Valve The aortic valve opens well. The aortic valve is not well visualized secondary to technical limitations. There is no aortic valve stenosis. No aortic regurgitation is present. Tricuspid Valve The tricuspid valve is not well visualized secondary to technical limitations. There is a trace amount of tricuspid regurgitation. Tricuspid regurgitation jet envelope not well defined to measure RV systolic pressure accurately. Pulmonic Valve The pulmonic valve is not well seen, but is grossly normal. There is a trace amount of pulmonic regurgitation. Great Vessels The aortic root is normal size. The inferior vena cava appeared normal and decreased > 50% with respiration (RAP 5-10 mmHg). Effusions There is no pericardial effusion. : DELVIS LAY Anil
[2019-09-13] MEDS: INSULIN GLARGINE,HUM.REC.ANLOG 1,000 UNIT/10 ML VIAL SUBCUT SCH (21:57)
[2019-09-13] MEDS ORDERED: MELATONIN 5 MG TABLET PO PRN (22:00)
[2019-09-14 05:58] LABS: ANION GAP 8 (5-19); BLOOD UREA NITROGEN 17 mg/dL (7-20); CALCIUM 8.7 mg/dL (8.4-10.2); CARBON DIOXIDE 23 mmol/L (22-30); CHLORIDE 103 mmol/L (98-107); GLUCOSE 216 mg/dL (75-110); POTASSIUM 3.9 mmol/L (3.6-5.0)
[2019-09-14] MEDS: INSULIN GLARGINE,HUM.REC.ANLOG 1,000 UNIT/10 ML VIAL SUBCUT SCH (10:09)
[2019-09-14] MEDS: ENOXAPARIN SODIUM INJ 120 MG/0.8 ML DISP.SYRIN SUBCUT SCH (10:09)
[2019-09-14] MEDS ORDERED: LISINOPRIL 10 MG TABLET PO SCH (13:00)
[2019-09-14 13:54] VITALS: BP 139/91
--- NOTE | 2019-09-14 17:52 | PDOC DISCHARGE SUMMARY ---
Impression - Admit/DC Date/PCP Admission Date/Primary Care Provider: 09/12/19 12:05 LOIS VICENTE MD Discharge Date: 09/14/19 - Discharge Diagnosis (1) Pulmonary embolus Is this a current diagnosis for this admission?: Yes (2) Morbid obesity Is this a current diagnosis for this admission?: Yes (3) Seizures Is this a current diagnosis for this admission?: Yes (4) Deep vein thrombosis, lower left extremity Is this a current diagnosis for this admission?: Yes (5) Diabetes Is this a current diagnosis for this admission?: Yes (6) Brain aneurysm Is this a current diagnosis for this admission?: Yes - Additional Information Resuscitation Status: Full Code Discharge Diet: Cardiac Discharge Activity: Activity As Tolerated, Slowly Increase Activity Referrals: LOIS VICENTE MD [Primary Care Provider] - 09/15/19 2:45 pm Prescriptions: Apixaban [Eliquis] 5 mg PO BID #28 tab.ds.pk Lisinopril [Prinivil 10 mg Tablet] 10 mg PO DAILY #30 tablet Home Medications: Apixaban [Eliquis 5 mg Tablet] 5 mg PO DAILY #72 tablet 09/07/19 Dapagliflozin Propanediol [Farxiga] 10 mg PO DAILY 09/12/19 Omeprazole 40 mg PO DAILY 09/12/19 Ondansetron [Zofran Odt 4 mg Tablet (6 Tab/ER Disp)] 4 mg PO Q8HP PRN 09/12/19 Semaglutide [Ozempic] 1 mg SUBCUT MO@1000 09/12/19 Apixaban [Eliquis] 5 mg PO BID #28 tab.ds.pk 09/14/19 Insulin Glargine,Hum.rec.anlog [Lantus Insulin 100 Unit/1 ml 10 ml] 85 unit SUBCUT Q12 unit 09/14/19 Lisinopril [Prinivil 10 mg Tablet] 10 mg PO DAILY #30 tablet 09/14/19 History of Present Illiness History of Present Illness: JERAMY CONDON is a 68 year old male with multiple medical comorbidities including morbid obesity, diabetes mellitus, seizures, and a partial colectomy due to multiple polyps, who presents with shortness of breath. He has not been febrile. He has not had a cough. He was diagnosed with a DVT in this ER for 5 days ago and has been on Eliquis 10 mg twice a day since then. He has not yet completed the loading phase. Did not have any chest pain, but he did complain of some shortness of breath got worse with exertion. He said it lasted for couple hours this morning but he feels fine now. He was not hypoxic. His troponin was normal. His BNP was normal. He was hemodynamically stable with a good blood pressure. Chest CT shows multiple emboli in all lobes of his lungs. The CT showed some septal flattening indicating possible right heart strain, with a normal troponins and normal BMP would suggest against this, and based on his body habitus he may have obstructive sleep apnea and subsequent pulmonary hypertension. Hospital Course Hospital Course: The patient was doing fine was asymptomatic for the duration of his inpatient stay. His echocardiogram was unremarkable and showed no evidence of any heart strain. He did not have any chest pain or shortness of breath. I got records from an ED visit to the [facility] ER in [place] 2 days after he was diagnosed with a DVT. He went there for abdominal pain, and had an abdominal CT that was unremarkable. He was noted to have an adrenal cyst that his primary care provider is been to follow-up on. I suspect that the pulmonary emboli that he presented with were already there whenever the DVT was diagnosed. I do not believe that the discovery of these pulmonary emboli constitutes treatment failure with Eliquis. He has had a couple of days of Lovenox here, and I am going to restart him from the beginning of his Eliquis loading. His told me today, and the patient failed to tell me this, that he has a history of a brain aneurysm, but the patient said that it was very small and he was told that he just has to have it monitored. He does not remember when it was diagnosed, but said he supposed to have a CT scan every year to evaluate it. I talked his primary care provider who does not have evidence of this in his records, but the patient said he follows up with a Dr. Doe in [place]. The patient has a risk of having a worse outcome if he has bleeding that this aneurysm while he is on anticoagulation, but if he does not get treated with anticoagulants then he will almost certainly have a serious adverse event due to his DVT and bilateral pulmonary emboli. His blood pressure was a little bit at the high end of normal, so I started him on some lisinopril to help get his blood pressure down. The patient was cautioned that he should keep his blood pressure are under good control, and that he should not do any kind of straining or anything that would provoke a Valsalva maneuver. His blood sugars were also elevated on the large doses of Lantus he takes every day, so I recommended that he increase his Lantus dose. Also recommended that he be more diligent in his dietary habits to keep his blood sugar under control. I also recommended a light exercise regimen of daily walking. He has a follow-up tomorrow with his primary care provider. The patient's return to work will depend upon his primary care provider's clearance. Patient verbalizes understanding. His labs and examination were reassuring he was discharged in stable condition. Physical Exam Vital Signs: Temp Pulse Resp BP Pulse Ox 98.2 F 77 16 139/91 H 100 09/14/19 13:52 09/14/19 14:00 09/14/19 13:52 09/14/19 13:52 09/14/19 13:52 Intake & Output 09/13/19 09/14/19 09/15/19 06:59 06:59 06:59 Intake Total 380 1460 Output Total 495 275 Balance -115 1185 Weight 111.4 kg 111.6 kg General appearance: PRESENT: no acute distress, cooperative, disheveled, morbidly obese Respiratory exam: PRESENT: clear to auscultation sherie, symmetrical, unlabored. ABSENT: accessory muscle use, chest wall tenderness, crackles, prolonged expiratory phas, rhonchi, tachypnea, wheezes Cardiovascular exam: PRESENT: RRR, +S1, +S2 Pulses: PRESENT: normal carotid pulses Vascular exam: PRESENT: normal capillary refill GI/Abdominal exam: PRESENT: normal bowel sounds, soft, other - Pendulous abdomen. ABSENT: distended, guarding, rebound Extremities exam: ABSENT: clubbing, pedal edema Musculoskeletal exam: PRESENT: normal inspection. ABSENT: deformity Neurological exam: PRESENT: alert, awake, oriented to person, oriented to place, oriented to time, oriented to situation Psychiatric exam: PRESENT: appropriate affect, normal mood Skin exam: PRESENT: dry, warm Results Laboratory Results: WBC 6.2 10^3/uL (4.0-10.5) 09/13/19 05:06 RBC 4.91 10^6/uL (4.35-5.55) 09/13/19 05:06 Hgb 14.7 g/dL (13.5-17.0) 09/13/19 05:06 Hct 42.4 % (37.9-51.0) 09/13/19 05:06 MCV 86 fl (80-97) 09/13/19 05:06 MCH 29.9 pg (27.0-33.4) 09/13/19 05:06 MCHC 34.6 g/dL (32.0-36.0) 09/13/19 05:06 RDW 14.3 % (11.5-14.0) H 09/13/19 05:06 Plt Count 113 10^3/uL (150-450) L 09/13/19 05:06 Lymph % (Auto) 26.2 % (13-45) 09/12/19 08:35 [place]helps % (Auto) 7.1 % (3-13) 09/12/19 08:35 Eos % (Auto) 0.8 % (0-6) 09/12/19 08:35 Baso % (Auto) 0.5 % (0-2) 09/12/19 08:35 Absolute Neuts (auto) 4.2 10^3/uL (1.7-8.2) 09/12/19 08:35 Absolute Lymphs (auto) 1.7 10^3/uL (0.5-4.7) 09/12/19 08:35 Absolute Monos (auto) 0.5 10^3/uL (0.1-1.4) 09/12/19 08:35 Absolute Eos (auto) 0.0 10^3/uL (0.0-0.6) 09/12/19 08:35 Absolute Basos (auto) 0.0 10^3/uL (0.0-0.2) 09/12/19 08:35 Seg Neutrophils % 65.4 % (42-78) 09/12/19 08:35 PT 17.4 SEC (11.4-15.4) H 09/12/19 08:35 INR 1.41 09/12/19 08:35 Sodium 134.4 mmol/L (137-145) L 09/14/19 05:29 Potassium 3.9 mmol/L (3.6-5.0) 09/14/19 05:29 Chloride 103 mmol/L (98-107) 09/14/19 05:29 Carbon Dioxide 23 mmol/L (22-30) 09/14/19 05:29 Anion Gap 8 (5-19) 09/14/19 05:29 BUN 17 mg/dL (7-20) 09/14/19 05:29 Creatinine 1.10 mg/dL (0.52-1.25) 09/14/19 05:29 Est GFR ( Amer) > 60 (>60) 09/14/19 05:29 Est GFR (MDRD) Non-Af > 60 (>60) 09/14/19 05:29 Glucose 216 mg/dL (75-110) H 09/14/19 05:29 POC Glucose 238 mg/dL (70-110) H 09/13/19 21:07 Calcium 8.7 mg/dL (8.4-10.2) 09/14/19 05:29 Troponin I < 0.012 ng/mL 09/12/19 08:35 NT-Pro-B Natriuret Pep 33 pg/mL (<125) 09/12/19 08:35 Urine Color YELLOW 09/13/19 15:04 Urine Appearance CLEAR 09/13/19 15:04 Urine pH 5.0 (5.0-9.0) 09/13/19 15:04 Ur Specific [place] 1.031 09/13/19 15:04 Urine Protein NEGATIVE mg/dL (NEGATIVE) 09/13/19 15:04 Urine Glucose (UA) >=500 mg/dL (NEGATIVE) H 09/13/19 15:04 Urine Ketones TRACE mg/dL (NEGATIVE) H 09/13/19 15:04 Urine Blood NEGATIVE (NEGATIVE) 09/13/19 15:04 Urine Nitrite NEGATIVE (NEGATIVE) 09/13/19 15:04 Urine Bilirubin NEGATIVE (NEGATIVE) 09/13/19 15:04 Urine Urobilinogen NEGATIVE mg/dL (<2.0) 09/13/19 15:04 Ur Leukocyte Esterase NEGATIVE (NEGATIVE) 09/13/19 15:04 Urine WBC (Auto) 0 /HPF 09/13/19 15:04 Urine RBC (Auto) 1 /HPF 05/27/20 15:04 Urine Mucus (Auto) RARE /LPF 09/13/19 15:04 Urine Ascorbic Acid NEGATIVE (NEGATIVE) 09/13/19 15:04 09/12/19 08:35 Troponin I < 0.012 NT-Pro-B Natriuret Pep 33 Impressions: Chest/Abdomen CTA 09/12/19 08:37 IMPRESSION: 1. Emboli within lobar and segmental branches of the pulmonary arteries to the right upper lobe, right middle lobe, right lower lobe, left upper lobe, lingula and left lower lobe. 2. Evidence of right ventricular strain - flattening of the interventricular septum and reversal of the normal ratio of the right atrium to the right ventricle. 3. Complex 2.3 x 3.2 cm right adrenal nodule that contain soft tissue and fat attenuation component. Plan Time Spent: Greater than 30 Minutes Stroke Is this a Stroke Patient?: No Acute Heart Failure - Is this a Heart Failure Patient?: No
[2019-09-14] MEDS ORDERED: INSULIN GLARGINE,HUM.REC.ANLOG 1,000 UNIT/10 ML VIAL SUBCUT SCH (22:00)
== END 2019-09-14 16:21 | disposition home or self-care (01) ==
LOC: ER 08:15 → EH 12:05 → 4W 15:41
PROVIDERS: ADMIT Family Medicine; ATTEND Family Medicine
DX: I26.99 Other pulmonary embolism without acute cor pulmonale (principal); E66.01 Morbid (severe) obesity due to excess calories; R56.9 Unspecified convulsions; I82.432 Acute embolism and thrombosis of left popliteal vein; E11.9 Type 2 diabetes mellitus without complications; E27.8 Other specified disorders of adrenal gland; R03.0 Elevated blood-pressure reading, without diagnosis of hypertension; I67.1 Cerebral aneurysm, nonruptured; Z90.49 Acquired absence of other specified parts of digestive tract; Z79.4 Long term (current) use of insulin; Z82.49 Family history of ischemic heart disease and other diseases of the circulatory system; Z87.891 Personal history of nicotine dependence; Z79.899 Other long term (current) drug therapy; Z79.02 Long term (current) use of antithrombotics/antiplatelets; Z86.010 Personal history of colon polyps
CPT/HCPCS: 93005; 99285; 36415 ×3; 82962 ×2; 85025; 85027; 85610; 80048 ×3; 81001; 84484; 83880; 93306; 71275; 93010; G0378 ×4; J1815 ×2; J1650 ×3; J3490 ×4

== ENCOUNTER 2020-04-01 08:09 | Emergency (ER) | payer BC, MEDICARE ==
[2020-04-01 09:10] LABS: ABSOLUTE BASOPHILS # (AUTO) 0.1 10^3/uL (0.0-0.2); ABSOLUTE MONOCYTES (AUTO) 1.1 10^3/uL (0.1-1.4); ABSOLUTE NEUT (AUTO) 10.8 10^3/uL (1.7-8.2); BASOPHILS % (AUTO) 0.5 % (0-2); EOSINOPHILS % (AUTO) 0.2 % (0-6); HEMATOCRIT 47.8 % (37.9-51.0); HEMOGLOBIN 15.7 g/dL (13.5-17.0); LYMPHOCYTES % (AUTO) 7.9 % (13-45); MEAN CORPUSCULAR HEMOGLOBIN 28.2 pg (27.0-33.4); MEAN CORPUSCULAR HGB CONC 32.9 g/dL (32.0-36.0); MEAN CORPUSCULAR VOLUME 86 fl (80-97); MONOCYTES % (AUTO) 8.2 % (3-13); PLATELET COUNT 274 10^3/uL (150-450); RED BLOOD COUNT 5.59 10^6/uL (4.35-5.55); RED CELL DISTRIBUTION WIDTH 14.8 % (11.5-14.0); SEGMENTED NEUTROPHILS % (AUTO) 83.2 % (42-78); TOTAL CELLS COUNTED % (AUTO) 100 %
--- NOTE | 2020-04-01 09:15 | RADIOLOGY REPORT (SQ) ---
EXAM DESCRIPTION: CHEST SINGLE VIEW IMAGES COMPLETED DATE/TIME: 04/01/2020 9:02 am REASON FOR STUDY: difficulty breathing COMPARISON: AP view of the chest from 03/25/2020. EXAM PARAMETERS: NUMBER OF VIEWS: One view. TECHNIQUE: An AP view of the chest was obtained. RADIATION DOSE: NA LIMITATIONS: None. FINDINGS: LUNGS AND PLEURA: Low inspiratory lung volumes and bilateral basilar predominant patchy pe ripheral parenchymal opacities. The costophrenic sulci are blunted. There is no pneumothorax. MEDIASTINUM AND HILAR STRUCTURES: No mediastinal or hilar contour abnormality. HEART AND VASCULAR STRUCTURES: The cardiac silhouette is within normal limits given the low inspirato ry lung volumes. BONES: No acute findings. HARDWARE: None in the chest. OTHER: No other finding. IMPRESSION: Low inspiratory lung volumes and bilateral basilar predominant patchy parenchymal opacit ies. Clinical correlation to exclude a pneumonia is recommended. TECHNICAL DOCUMENTATION: JOB ID: [id number] 2010 [employer]- All Rights Reserved Reading location - IP/workstation name: [email or web address]
[2020-04-01 11:39] LABS: ALBUMIN 2.9 g/dL (3.5-5.0); ALKALINE PHOSPHATASE 90 U/L (38-126); ANION GAP 7 (5-19); ASPARTATE AMINO TRANSFERASE 33 U/L (17-59); BILIRUBIN,TOTAL 0.9 mg/dL (0.2-1.3); BLOOD UREA NITROGEN 16 mg/dL (7-20); CALCIUM 8.5 mg/dL (8.4-10.2); CARBON DIOXIDE 26 mmol/L (22-30); CHLORIDE 101 mmol/L (98-107); GLUCOSE 232 mg/dL (75-110); POTASSIUM 4.5 mmol/L (3.6-5.0); TOTAL PROTEIN 5.7 g/dL (6.3-8.2)
--- NOTE | 2020-04-01 13:12 | ER Document Report ---
Entered by LUDWIN ARROYO SCRIBE 04/01/20 0846 Acting as scribe for:JANEEN VERA MD ED General - General Chief Complaint: Breathing Difficulty Stated Complaint: DIFFICULTY BREATHING Time Seen by Provider: 04/01/20 08:12 Primary Care Provider: LOIS VICENTE MD [Primary Care Provider] - Follow up as needed Information source: Patient, [facility] Records Notes: This 69 year old male patient presents to the emergency department today with complaints of shortness of breath this morning. Patient states he lives with family, with several members tested positive for covid, including his who is admitted at the hospital. Patient states he was recently tested covid + and was discharged from the hospital x5 days ago (03/27) after being admitted for x2 days. Denies any cough, fever, chills, nausea, or vomiting. TRAVEL OUTSIDE OF THE [place] IN LAST 30 DAYS: No - Related Data Allergies/Adverse Reactions: tramadol Allergy (Verified 04/01/20 08:12) Home Medications: eliquis. glimepride. insulin. lantus. 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 denies: Chills, Fever EENT: No symptoms reported Cardiovascular: No symptoms reported Respiratory: See HPI, Short of breath. denies: Cough Gastrointestinal: See HPI. denies: Nausea, Vomiting Genitourinary: No symptoms reported Male Genitourinary: No symptoms reported Musculoskeletal: No symptoms reported Skin: No symptoms reported Hematologic/Lymphatic: No symptoms reported Neurological/Psychological: No symptoms reported -: Yes All other systems reviewed and negative Physical Exam - Vital signs Vitals: Pulse Ox 95 04/01/20 08:08 - General Notes: Alert. Appears in no respiratory distress. - HEENT Head: Normocephalic, Atraumatic Eyes: Normal Pupils: PERRL - Respiratory Chest status: Nontender Chest palpation: Normal Notes: Saturating 97-98% on room air. No respiratory distress. - Cardiovascular Rhythm: Regular Heart sounds: Normal auscultation Murmur: No - Abdominal Inspection: Normal Distension: No distension Bowel sounds: Normal Tenderness: Nontender - Extremities General upper extremity: Normal inspection. No: Edema General lower extremity: Normal inspection. No: Edema - Neurological Neuro grossly intact: Yes Cognition: Normal Orientation: AAOx4 Kayla Coma Scale Eye Opening: Spontaneous Kayla Coma Scale Verbal: Oriented [place] Coma Scale Motor: Obeys Commands [place] Coma Scale Total: 15 Speech: Normal Sensory: Normal - Psychological Associated symptoms: Normal affect, Normal mood - Skin Skin Temperature: Warm Skin Moisture: Dry Skin Color: Normal Course - Re-evaluation Re-evalutation: 04/01/20 13:06 Patient resting comfortably not showing signs of distress sats are 94 [phone]% - Vital Signs Vital signs: Temp Pulse Resp BP Pulse Ox 99.0 F 20 128/83 H 95 04/01/20 08:12 04/01/20 11:01 04/01/20 11:00 04/01/20 11:01 04/01/20 13:06 Vital signs stable afebrile 128/83 with 95% pulse ox room air respiratory rate 20. - Laboratory Results Result Diagrams: 04/01/20 08:18 04/01/20 10:55 Laboratory Results Interpreted: 04/01/20 04/01/20 04/01/20 08:18 10:55 10:55 WBC 13.0 H RBC 5.59 H RDW 14.8 H Lymph % (Auto) 7.9 L Absolute Neuts (auto) 10.8 H Seg Neutrophils % 83.2 H Sodium 134.3 L Glucose 232 H NT-Pro-B Natriuret Pep 283 H Total Protein 5.7 L Albumin 2.9 L Laboratories are not critical patient does have a 13,000 white count a BNP of 283 and a glucose of 232. Critical Laboratory Results Reviewed: No Critical Results - Radiology Results Radiology Results Interpreted: 04/01/20 13:07 Chest X-Ray 04/01/20 08:50 IMPRESSION: Low inspiratory lung volumes and bilateral basilar predominant patchy parenchymal opacities. Clinical correlation to exclude a pneumonia is recommended. Chest x-ray shows low inspiratory volumes bibasilar patchy parenchymal opacities clinical correlation for pneumonia patient is COVID-19 positive was hospitalized last week discharged home with improvement in oxygen saturation. Patient is on some steroid management at this time plan is to place patient on a [facility]. Critical Radiology Results Reviewed: No Critical Results - EKG Interpretation by Me Additional EKG results interpreted by me: 04/01/20 13:08 Twelve-lead EKG shows normal sinus rhythm rate of 99 normal axis AL interval normal QRS interval normal QT interval normal no ST elevations to suggest STEMI Discharge - Discharge Clinical Impression: Lab test positive for detection of COVID-19 virus, Shortness of breath Condition: Stable Disposition: HOME, SELF-CARE Prescriptions: Azithromycin [Zithromax 250 mg Tablet] 250 mg PO ASDIR #6 tablet Referrals: LOIS VICENTE MD [Primary Care Provider] - Follow up as needed I personally performed the services described in the documentation, reviewed and edited the documentation which was dictated to the scribe in my presence, and it accurately records my words and actions.
[2020-04-01 14:31] VITALS: BP 117/80
--- NOTE | 2020-04-01 19:10 | EKG REPORT ---
SEVERITY:- NORMAL ECG - SINUS RHYTHM : Confirmed by: Bess Bonner MD 01-Apr-2020 19:10:01
== END 2020-04-01 14:24 | disposition home or self-care (01) ==
LOC: ER 08:09
DX: U07.1 COVID-19 (principal); R06.02 Shortness of breath; E11.9 Type 2 diabetes mellitus without complications; Z79.4 Long term (current) use of insulin; Z79.01 Long term (current) use of anticoagulants; Z79.899 Other long term (current) drug therapy; Z87.891 Personal history of nicotine dependence; Z88.6 Allergy status to analgesic agent
CPT/HCPCS: 36415; 71045; 80053; 83880; 85025; 87040; 87077; 87150; 87186; 93005; 93010; 99285